=== PATIENT | female | born 1995 | race Caucasian/White ===

== ENCOUNTER → 2016-10-20 | Outpatient (CLI) | payer BC ==
[~2016-10-20] MED LIST: Iopamidol 755 MG/ML 500 ML Multipack Bottle IVPUSH STA
--- NOTE | 2016-10-20 17:39 | CT ---
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 Site : 1995 Study: CT Abdomen/Pelvis [id number]/26/2017 3:34:26 PM Ordering Physician: Kinsey Joe Final Report: INDICATION: periumbilical pain CT ABDOMEN AND PELVIS WITH CONTRAST TECHNIQUE: Multidetector CT imaging was performed through the abdomen and pelvis following intravenous contrast administration using 100 mL Isovue 370. Oral contrast was also given. Coronal and sagittal reconstructions were generated. COMPARISON: None. FINDINGS: Lower chest: Lung bases are clear. Liver: Within normal limits. Gallbladder and bile ducts: No gallbladder wall thickening or calcified gallstones. No biliary dilation identified. Pancreas: Unremarkable. Spleen: Normal. Adrenals: No nodules or masses. Kidneys, ureters, and urinary bladder: A few small nonobstructing bilateral intrarenal stones, greatest on the left. No renal masses or hydronephrosis. No bladder mass or definite wall thickening. Gastrointestinal tract: Normal caliber bowel without wall thickening. The appendix is normal. Vascular structures: Normal for age. Peritoneum: No free air, abscess, or significant free fluid. Lymph nodes: Lymph nodes throughout the mesentery are slightly prominent. No pathologically enlarged nodes are identified. Reproductive organs: No pelvic masses. Bones: Normal for age. IMPRESSION: 1. Slightly prominent mesenteric lymph nodes. The possibility of mesenteric adenitis could be considered. No other acute findings are noted in the abdomen or pelvis. 2. Small nonobstructing bilateral intrarenal stones, greatest on the left. ANABELLE OROZCO MD [employer] Dictated by Papa Orozco MD @ 10/20/2016 3:49:34 PM Dictated by: Papa Orozco MD @ 10/20/2016 15:56:53 (Electronic Signature) Report Signed by Proxy and Original Signed Document filed in the Medical Record. [facility]
== END ==
LOC: MW.DI 14:59
PROVIDERS: ATTEND Surgery
DX: R10.33 Periumbilical pain (principal); N20.0 Calculus of kidney
CPT/HCPCS: 74177; Q9967

== ENCOUNTER 2016-11-03 08:09 | Day surgery (SDC) | payer BC ==
[~2016-11-03 08:09] MED LIST changes: -Iopamidol 755 MG/ML 500 ML Multipack Bottle IVPUSH STA; +Lactated Ringers 1,000 ML IV SCH; +Lidocaine 2% 5 ML SDV ONE; +Midazolam 1 MG/ML 2 ML SDV ONE; +Propofol 200 MG/20 ML SDV ONE; +Sodium Chloride 0.9% 10 ML Syringe FLUSH PRN; +Sodium Chloride 0.9% 2.5 ML Syringe FLUSH PRN; +fentaNYL 100 MCG/2 ML SDV ONE
--- NOTE | 2016-11-03 08:44 | PCM.PREANE ---
Preanesthetic Assessment - Anesthesia/Transfusion/Family Hx Anesthesia History: Prior Anesthesia Without Reaction Family History of Anesthesia Reaction: No Transfusion History: No Prior Transfusion(s) Intubation History: Unknown - Review of Systems General: No Symptoms Pulmonary: No Symptoms Cardiovascular: No Symptoms Gastrointestinal: Constipation Neurological: No Symptoms Other: Reports: None - Physical Assessment O2 Sat by Pulse Oximetry: 98 Respiratory Rate: 16 Vital Signs: Last Vital Signs Temp 36.6 C 11/03/16 08:37 Pulse 71 11/03/16 08:37 Resp 16 11/03/16 08:37 BP 104/59 L 11/03/16 08:37 Pulse Ox 98 11/03/16 08:37 Height: 1.6 m Weight: 86 kg ASA Class: 2 Mental Status: Alert & Oriented x3 Airway Class: Mallampati = 2 Dentition: Reports: Normal Dentition Thyro-Mental Finger Breadths: 3 Mouth Opening Finger Breadths: 3 ROM/Head Extension: Full Lungs: Clear to auscultation, Normal respiratory effort Cardiovascular: Regular Rate, Regular Rhythm - Allergies Allergies/Adverse Reactions: Allergies Allergy/AdvReac Type Severity Reaction Status Date / Time No Known Allergies Allergy Verified 05/07/16 22:06 - Blood Blood Available: No - Anesthesia Plan Pre-Op Medication Ordered: None - Acknowledgements Anesthesia Type Planned: MAC Pt an Appropriate Candidate for the Planned Anesthesia: Yes Alternatives and Risks of Anesthesia Discussed w Pt/Guardian: Yes Pt/Guardian Understands and Agrees with Anesthesia Plan: Yes PreAnesthesia Questionnaire Cardiovascular History: Reports: None Respiratory History: Reports: None Gastrointestinal History: Reports: None, Chronic constipation Genitourinary History: Reports: None Other Genitourinary History: currently has kidney stone [employer] History: Reports: None Musculoskeletal History: Reports: None Neurological History: Reports: Migraines Psychiatric History: Reports: None Endocrine/Metabolic History: Reports: Obesity/BMI 30+ Oncologic (Cancer) History: Reports: None Dermatologic History: Reports: None - Infectious Disease History Infectious Disease History: Reports: None - Past Surgical History HEENT Surgical History: Reports: Adenoidectomy, Tonsillectomy - SUBSTANCE USE Smoking Status *Q: Never Smoker Recreational Drug Use History: No - HOME MEDS Home Medications: Home Meds Etonogestrel [Nexplanon] 1 device SUBCUT ASDIRECTED 11/01/16 [History] Topiramate 50 mg PO ASDIRECTED 11/01/16 [History] - CURRENT (IN HOUSE) MEDS Current Meds: Current Medications Lactated Ringer's (Ringers, Lactated) 1,000 mls @ 125 mls/hr IV ASDIRECTED [facility] Last Admin: 11/03/16 08:36 Dose: 125 mls/hr Sodium Chloride (Saline Flush) 10 ml FLUSH ASDIRECTED PRN PRN Reason: Keep Vein Open Sodium Chloride (Saline Flush) 2.5 ml FLUSH ASDIRECTED PRN PRN Reason: Keep Vein Open Discontinued Medications Fentanyl (Sublimaze) Confirm Administered Dose 100 mcg .ROUTE .STK-MED ONE Stop: 11/03/16 07:18 Lidocaine (Xylocaine-Mpf 2%) Confirm Administered Dose 5 ml .ROUTE .STK-MED ONE Stop: 11/03/16 07:18 Midazolam HCl (Versed 1 Mg/Ml) Confirm Administered Dose 2 mg .ROUTE .STK-MED ONE Stop: 11/03/16 07:18 Propofol (Diprivan 20 Ml) Confirm Administered Dose 400 mg .ROUTE .STK-MED ONE Stop: 11/03/16 07:18
[2016-11-03] MEDS ORDERED: Glycopyrrolate 0.2 MG/ML SDV ONE (09:17)
[2016-11-03] MEDS ORDERED: ePHEDrine 50 MG/ML SDV ONE (09:18)
[2016-11-03] MEDS ORDERED: Propofol 200 MG/20 ML SDV ONE ×4 (09:27→10:33)
--- NOTE | 2016-11-03 09:48 | PCM.OPNOTE ---
- General Post-Op/Procedure Note Date of Surgery/Procedure: 11/03/16 Operative Procedure(s): Diagnostic EGD and colonoscopy Findings: Gastritis and superficial antral ulcers. Duodenitis. Normal colon Pre Op Diagnosis: Abdominal pain, constipation Post-Op Diagnosis: Gastritis, duodenitis, ulcers Primary Surgeon: Tatyana Euceda Condition: Good
--- NOTE | 2016-11-03 09:58 | PCM.POSTAN ---
POST ANESTHESIA ASSESSMENT - MENTAL STATUS Mental Status: alert, oriented - RESPIRATORY Respiratory Status: respiratory rate WNL, airway patent, O2 saturation stable - CARDIOVASCULAR CV Status: pulse rate WNL, blood pressure stable - GASTROINTESTINAL GI Status: no symptoms - POST OP HYDRATION Hydration Status: adequate & stable - OBSERVATIONS Free Text/Narrative:: no anesthesia problems
[2016-11-03] MEDS ORDERED: fentaNYL 100 MCG/2 ML SDV ONE (10:21)
[2016-11-03] MEDS ORDERED: Succinylcholine/Normal Saline 200 MG/10 ML Syringe ONE (10:28)
[2016-11-03] MEDS ORDERED: Phenylephrine/Normal Saline 100 MCG/ML 10 ML Syringe ONE (10:29)
[2016-11-03 12:53] VITALS: BP 97/54
--- NOTE | 2016-11-03 14:20 | OR ---
SURGEON: CRISTELA STEPHEN MD DATE OF PROCEDURE: 11/03/2016 PREOPERATIVE DIAGNOSES: Change in bowel habits, abdominal pain. POSTOPERATIVE DIAGNOSES: Gastritis and duodenitis, gastric ulcers. PROCEDURE PERFORMED: Diagnostic esophagogastroduodenoscopy and colonoscopy. INSTRUMENT USED: Olympus endoscope and colonoscope. ANESTHESIA: MAC. EXTENT OF EXAM: 1. To the second portion of duodenum during the EGD portion. 2. To the cecum during the colonoscopic portion. PREPARATION: Good. LIMITATIONS: None. INDICATIONS FOR EXAMINATION: The patient is a 21-year-old female, who presents with 2 complaints. One of them is abdominal pain. She has been experiencing this across her mid abdomen. She feels this is secondary to long-standing constipation. The patient has never had a regular bowel movement. She has always been very constipated and [id number] treatments have not been helpful. The patient denies any family history of inflammatory bowel disease or colon cancer. A CT of the abdomen was obtained that showed no evidence of any acute pathology. We discussed performing a diagnostic EGD and colonoscopy to look for a source of her discomfort and possible cause of the constipation. We discussed the procedure as well as expected perioperative course. We discussed the risks, including bleeding, infection, or damage to surrounding structures, including perforation. The patient verbalized understanding and wished to proceed. PROCEDURE IN DETAIL: The patient was brought to the endoscopy suite and placed in the beach chair position. A time-out was completed verifying the patient's name, age, date of , allergies, and procedure to be performed. Monitored anesthesia care was induced and a bite-block was placed in the patient's mouth. The continuous oxygen was provided via nasal cannula throughout the procedure. After adequate sedation was achieved, the endoscope was placed over the patient's tongue, down her esophagus, and advanced under direct visualization to the level of the second portion of duodenum. A photograph was taken of the second portion of duodenum which appeared normal. The scope was then pulled back to carefully examine the remainder of the intestine. The duodenal bulb appeared mildly erythematous consistent with duodenitis. The scope was then brought into the stomach. There were superficial ulcers within the gastric antrum. A photograph was taken of this. The pylorus appeared normal. Biopsies were taken of the stomach, antrum, body, and fundus, and sent for H. pylori testing. The scope was then brought into the esophagus and a picture was taken of the Z-line which appeared normal. The remainder of the esophageal mucosa appeared normal. The scope was then removed from the patient. The patient was then placed on her left side, in the left lateral decubitus position. A digital rectal exam was performed which was within normal limits. The patient did have some irritation around the anus secondary to the prep, but this appeared superficial. A well lubricated colonoscope was inserted into the rectum, advanced under direct visualization to the level of cecum. The cecum was identified by both visual and anatomic landmarks. Photographs were taken of the cecal cap as well as with retroflexing the scope. The scope was then fully withdrawn while examining the color, texture, anatomy, and integrity of the mucosa from the cecum to the anal canal. The findings were consistent with normal colonic mucosa. The scope was brought into the rectum and retroflexed to allow visualization of the anal canal opening. This appeared normal and photograph was taken. The scope was then straightened out and removed from the patient. The cecum to anus time was 9 minutes. The patient was then transferred to the recovery room in stable condition. ENDOSCOPIC DIAGNOSES: Gastritis and duodenitis, superficial gastric ulcers. RECOMMENDATIONS: Start on aggressive PPI therapy with Carafate. We will see the patient in 2 weeks in the clinic. WHITNEY REEVES /[id number]
== END 2016-11-03 10:35 | disposition home or self-care (01) ==
LOC: MW.SDS 08:09
PROVIDERS: ATTEND Surgery
DX: K29.50 Unspecified chronic gastritis without bleeding (principal); K25.9 Gastric ulcer, unspecified as acute or chronic, without hemorrhage or perforation; K29.80 Duodenitis without bleeding; G40.909 Epilepsy, unspecified, not intractable, without status epilepticus; F17.200 Nicotine dependence, unspecified, uncomplicated; Z98.818 Other dental procedure status; Z98.890 Other specified postprocedural states
CPT/HCPCS: 43239; 45378; 81025; J2250; J3010; J7120; 00740; 88305; 88312; J2704

== ENCOUNTER 2016-12-19 15:55 | Emergency (ER) | payer BC ==
[2016-12-19 16:05] VITALS: BP 127/72
--- NOTE | 2016-12-19 16:53 | EDM.PDOC ---
ED HPI GENERAL MEDICAL PROBLEM - General Chief Complaint: Genitourinary Problem Stated Complaint: ABDOMINAL PAIN/BLOOD IN URINE Time Seen by Provider: 12/19/16 16:10 Source of Information: Reports: Patient History Limitations: Reports: No Limitations - History of Present Illness INITIAL COMMENTS - FREE TEXT/NARRATIVE: HISTORY AND PHYSICAL: History of present illness: [Comes to the emergency room complaining of blood in her urine. Noticed this morning when she woke up and has continued throughout the day. She has been under the care of Dr. Amado the urologist for kidney stones. She states that stones are far up in her kidneys and she was told she wouldn't pass these for maybe one year. She has had no new low back pain, burning with urination urinary frequency or urinary urgency. No fever chills or abdominal pain. No vaginal discharge. She has otherwise been feeling well. She does not get regular periods due to her control. She has no other complaints or concerns at this time. Review of systems: As per history of present illness and below otherwise all systems reviewed and negative. Past medical history: As per history of present illness and as reviewed below otherwise noncontributory. Surgical history: As per history of present illness and as reviewed below otherwise noncontributory. Social history: No reported history of drug or alcohol abuse. Family history: As per history of present illness and as reviewed below otherwise noncontributory. Physical exam: Gen.: Well-developed well-nourished female in no acute distress HEENT: Atraumatic, normocephalic. Oral mucous membranes are pink and moist. No tonsillar swelling erythema or exudate. Lungs: Clear to auscultation, breath sounds equal bilaterally. Heart: S1S2, regular rate and rhythm. Abdomen: Soft, nondistended, nontender. Negative for masses or rebound. Negative for costovertebral tenderness. Genitourinary: Deferred. Rectal: Deferred. Extremities: Atraumatic, no deformities noted. Ambulance difficulty. Neurovascular unremarkable. Neuro: Awake, alert, oriented. Motor and sensory unremarkable throughout. Exam nonfocal. Diagnostics: [Urinalysis with micro, urine ] Impression: [UTI] Plan: [Urine is positive for large amount of blood and for nitrates, white blood cells , bacteria. Anjumra DS #10 sig 1 by mouth twice a day 0 refills sent to [facility]. She is also given a written prescription for #4 to take 1 twice a day to fill at her local pharmacy. Push fluids. Follow-up with PCP. She is in agreement with this plan. All her questions are answered and concerns are addressed.] Definitive disposition and diagnosis as appropriate pending reevaluation and review of above. lower back Pain Score (Numeric/FACES): 3 - Related Data Allergies Allergy/AdvReac Type Severity Reaction Status Date / Time No Known Allergies Allergy Verified 12/19/16 16:00 Home Meds: Home Meds Etonogestrel [Nexplanon] 1 device SUBCUT ASDIRECTED 11/01/16 [History] Topiramate 50 mg PO ASDIRECTED 11/01/16 [History] Docusate Sodium 100 mg PO BID PRN #30 capsule 11/03/16 [Rx] Pantoprazole [ProTONIX] 40 mg PO ACBREAKFAST #30 tab.cr 11/03/16 [Rx] Polyethylene Glycol 3350 [MiraLAX] 17 gm PO DAILY #30 packet 11/03/16 [Rx] Sucralfate [Carafate] 1 gm PO QIDACANDBED #28 cup 11/03/16 [Rx] Propranolol [Inderal] 10 mg PO BID 12/19/16 [History] Past Medical History HEENT History: Reports: None Cardiovascular History: Reports: None Respiratory History: Reports: None Gastrointestinal History: Reports: None, Chronic Constipation Genitourinary History: Reports: None Other Genitourinary History: currently has kidney stone [employer] History: Reports: None Musculoskeletal History: Reports: None Neurological History: Reports: None Psychiatric History: Reports: None Endocrine/Metabolic History: Reports: None Hematologic History: Reports: None Immunologic History: Reports: None Oncologic (Cancer) History: Reports: None Dermatologic History: Reports: None - Infectious Disease History Infectious Disease History: Reports: None - Past Surgical History Head Surgeries/Procedures: Reports: None HEENT Surgical History: Reports: Adenoidectomy, Tonsillectomy Cardiovascular Surgical History: Reports: None Female Surgical History: Reports: None Social & Family History - Family History Family Medical History: Noncontributory - Tobacco Use Smoking Status *Q: Never Smoker - Caffeine Use Caffeine Use: Reports: Coffee - Recreational Drug Use Recreational Drug Use: No ED ROS GENERAL - Review of Systems Review Of Systems: ROS reveals no pertinent complaints other than HPI. ED EXAM, RENAL/ - Physical Exam Exam: See Below Course - Vital Signs Last Recorded V/S: Last Vital Signs Temp 97.9 F 12/19/16 16:02 Pulse 74 12/19/16 16:02 Resp 16 12/19/16 16:02 BP 127/72 12/19/16 16:02 Pulse Ox 98 12/19/16 16:02 - Orders/Labs/Meds Labs: Laboratory Tests 12/19/16 12/19/16 Range/Units 16:05 16:05 Urine Color BROWN Urine Appearance SLT CLOUDY Urine pH 5.5 (5.0-8.0) Ur Specific Krypton >= 1.030 (1.001-1.035) Urine Protein 30 (NEGATIVE) mg/dL Urine Glucose (UA) NEGATIVE (NEGATIVE) mg/dL Urine Ketones TRACE H (NEGATIVE) mg/dL Urine Occult Blood LARGE H (NEGATIVE) Urine Nitrite POSITIVE H (NEGATIVE) Urine Bilirubin SMALL H (NEGATIVE) Urine Ictotest NEGATIVE Urine Urobilinogen 1.0 (<2.0) EU/dL Ur Leukocyte Esterase TRACE (NEGATIVE) Urine RBC TOO NUMBEROUS TO CT H (0-2/HPF) Urine WBC 2-5 (0-5/HPF) Ur Epithelial Cells FEW (NONE-FEW) Urine Bacteria 1+ H (NEGATIVE) Urine HCG, Qual NEGATIVE (NEGATIVE) Departure - Departure Time of Disposition: 16:53 Disposition: Home, Self-Care 01 Condition: Good Clinical Impression: UTI, Urinary tract infectious disease - Discharge Information Instructions: Urinary Tract Infection, Adult, [id number] Referrals: Marissa Godwin NP [Primary Care Provider] - Forms: ED Department Discharge Additional Instructions: The following information is given to patients seen in the emergency department who are being discharged to home. This information is to outline your options for follow-up care. We provide all patients seen in our emergency department with a follow-up referral. The need for follow-up, as well as the timing and circumstances, are variable depending upon the specifics of your emergency department visit. If you don't have a primary care physician on staff, we will provide you with a referral. We always advise you to contact your personal physician following an emergency department visit to inform them of the circumstance of the visit and for follow-up with them and/or the need for any referrals to a consulting specialist. The emergency department will also refer you to a specialist when appropriate. This referral assures that you have the opportunity for follow-up care with a specialist. All of these measure are taken in an effort to provide you with optimal care, which includes your follow-up. Under all circumstances we always encourage you to contact your private physician who remains a resource for coordinating your care. When calling for follow-up care, please make the office aware that this follow-up is from your recent emergency room visit. If for any reason you are refused follow-up, please contact the [facility] emergency department at and asked to speak to the emergency department charge nurse. [facility] [address] [place] [id number] All up with your primary care provider at the clinic listed above in 48-72 hours. Complete the antibiotics that you got through [facility], then fill prescription at the local pharmacy and continue until all taken. Return to ER as needed as discussed.
== END 2016-12-19 17:07 | disposition home or self-care (01) ==
LOC: MW.ED 15:55
DX: N39.0 Urinary tract infection, site not specified (principal); Z79.899 Other long term (current) drug therapy; Z98.890 Other specified postprocedural states
CPT/HCPCS: 81001; 81025; 87086; 99283

== ENCOUNTER 2017-03-19 18:12 | Emergency (ER) | payer BC ==
--- NOTE | 2017-03-19 18:18 | EDM.PDOC ---
ED HPI GENERAL MEDICAL PROBLEM - General Chief Complaint: Chest Pain Stated Complaint: SOB Time Seen by Provider: 03/19/17 18:17 Source of Information: Reports: Patient History Limitations: Reports: No Limitations - History of Present Illness INITIAL COMMENTS - FREE TEXT/NARRATIVE: HISTORY AND PHYSICAL: History of present illness: Patient is a 21-year-old female who presents to the emergency room today with complaints of chest pain 3 days. Patient points across the upper chest wall both left and right stating it's been aching. Denies any cough, fever, chills or shortness of breath. Denies any headache or change in vision. Denies any recent injury or trauma to her chest. Patient denies any abdominal pain, flank pain, or dysuria. Denies any personal history of cardiac or lung disease. Immediate family members have heart disease. Review of systems: As per history of present illness and below otherwise all systems reviewed and negative. Past medical history: As per history of present illness and as reviewed below otherwise noncontributory. Surgical history: As per history of present illness and as reviewed below otherwise noncontributory. Social history: No reported history of drug or alcohol abuse. Family history: As per history of present illness and as reviewed below otherwise noncontributory. Physical exam: Gen.: Nontoxic appearing 21-year-old female. Able to speak in full sentences without shortness of breath. Alert and oriented HEENT: Atraumatic, normocephalic, pupils reactive, negative for conjunctival pallor or scleral icterus, mucous membranes moist, throat clear, neck supple, nontender, trachea midline. Lungs: Clear to auscultation, breath sounds equal bilaterally, chest nontender. Heart: S1S2, regular rate and rhythm. Abdomen: Soft, nondistended, nontender. Negative for masses or hepatosplenomegaly. Negative for costovertebral tenderness. Pelvis: Stable nontender. Genitourinary: Deferred. Rectal: Deferred. Extremities: Atraumatic, negative for cords or calf pain. Neurovascular unremarkable. Neuro: Awake, alert, oriented. Cranial nerves II through XII unremarkable. Cerebellum unremarkable. Motor and sensory unremarkable throughout. Exam nonfocal. After obtaining my H&P went into the room to assess patient. Patient had an emesis bag with small amount of foody emesis. Patient complaining of increased nausea at this time. The patient some IV fluids and Toradol/Zofran. Reviewed the CT which reported patient stating she had some blood in her urine. Patient said the she has no dysuria suprapubic tenderness or flank tenderness. After patient received her IV medication and fluids, reports that she does feel improvement. Viewed her lab work and x-ray with the patient. Should symptoms appear to be viral at this time. I will give her a Medrol Dosepak for bronchitis type symptoms. Encouraged her to drink plenty of fluids over the next couple days and get plenty of rest. Diagnostics: CBC, CMP, troponin, 2 view chest x-ray, EKG Therapeutics: IV fluid, Zofran, Toradol Impression: Viral illness, bronchitis Plan: 1. You may take the prescribed Zofran as needed for nausea. Continue to drink plenty of fluids and get plenty of rest over the next couple days. 2. Medrol dose pack has been prescribed, please take as directed. 3. Follow-up with your primary care provider in the next 1-2 days. Her symptoms worsen or any of the symptoms that we discussed present themselves, please return to the ED as discussed. Wound to the ED as needed as discussed. Definitive disposition and diagnosis as appropriate pending reevaluation and review of above. Onset Date: 03/16/17 Duration: Day(s): Location: Reports: Chest chest pain Pain Score (Numeric/FACES): 8 - Related Data Allergies Allergy/AdvReac Type Severity Reaction Status Date / Time No Known Allergies Allergy Verified 03/19/17 18:16 Home Meds: Home Meds Etonogestrel [Nexplanon] 1 device SUBCUT ASDIRECTED 11/01/16 [History] Topiramate 50 mg PO ASDIRECTED 11/01/16 [History] Docusate Sodium 100 mg PO BID PRN #30 capsule 11/03/16 [Rx] Pantoprazole [ProTONIX] 40 mg PO ACBREAKFAST #30 tab.cr 11/03/16 [Rx] Polyethylene Glycol 3350 [MiraLAX] 17 gm PO DAILY #30 packet 11/03/16 [Rx] Sucralfate [Carafate] 1 gm PO QIDACANDBED #28 cup 11/03/16 [Rx] Propranolol [Inderal] 10 mg PO BID 12/19/16 [History] Past Medical History HEENT History: Reports: None Cardiovascular History: Reports: None Respiratory History: Reports: None Gastrointestinal History: Reports: None, Chronic Constipation Genitourinary History: Reports: None Other Genitourinary History: currently has kidney stone DREDGE HAND History: Reports: None Musculoskeletal History: Reports: None Neurological History: Reports: None Psychiatric History: Reports: None Endocrine/Metabolic History: Reports: None Hematologic History: Reports: None Immunologic History: Reports: None Oncologic (Cancer) History: Reports: None Dermatologic History: Reports: None - Infectious Disease History Infectious Disease History: Reports: None - Past Surgical History Head Surgeries/Procedures: Reports: None HEENT Surgical History: Reports: Adenoidectomy, Tonsillectomy Cardiovascular Surgical History: Reports: None Female Surgical History: Reports: None Social & Family History - Family History Family Medical History: Noncontributory - Tobacco Use Smoking Status *Q: Never Smoker - Caffeine Use Caffeine Use: Reports: Coffee - Recreational Drug Use Recreational Drug Use: No ED ROS GENERAL - Review of Systems Review Of Systems: ROS reveals no pertinent complaints other than HPI. ED EXAM, GENERAL - Physical Exam Exam: See Below (See dictation) Course - Vital Signs Last Recorded V/S: Last Vital Signs Temp 36.3 C 03/19/17 18:19 Pulse 89 03/19/17 18:19 Resp 18 03/19/17 18:19 BP 121/74 03/19/17 18:19 Pulse Ox 98 03/19/17 18:19 - Orders/Labs/Meds Orders: Active Orders 24 hr Category Date Time Status EKG 12 Lead [EKG Documentation Completion] [RC] STAT Care 03/19/17 18:28 Active Chest 2V [CR] Stat Exams 03/19/17 18:28 Taken Sodium Chloride 0.9% [Normal Saline] 1,000 ml Med 03/19/17 18:59 Active IV STAT Medication Orders Sodium Chloride (Normal Saline) 1,000 mls @ 999 mls/hr IV STAT ONE Stop: 03/19/17 19:59 Last Admin: 03/19/17 19:30 Dose: 999 mls/hr Labs: Laboratory Tests 03/19/17 03/19/17 03/19/17 Range/Units 18:34 18:34 18:34 WBC 9.47 (4.0-11.0) K/uL RBC 4.99 (4.30-5.90) M/uL Hgb 14.4 (12.0-16.0) g/dL Hct 41.9 (36.0-46.0) % MCV 84.0 (80.0-98.0) fL MCH 28.9 (27.0-32.0) pg MCHC 34.4 (31.0-37.0) g/dL RDW Std Deviation 40.5 (28.0-62.0) fl RDW Coeff of Johnathan 13 (11.0-15.0) % Plt Count 344 (150-400) K/uL MPV 9.50 (7.40-12.00) fL Neut % (Auto) 62.2 (48.0-80.0) % Lymph % (Auto) 25.8 (16.0-40.0) % Traverse % (Auto) 9.2 (0.0-15.0) % Eos % (Auto) 2.4 (0.0-7.0) % Baso % (Auto) 0.4 (0.0-1.5) % Neut # (Auto) 5.9 H (1.4-5.7) K/uL Lymph # (Auto) 2.4 (0.6-2.4) K/uL Traverse # (Auto) 0.9 H (0.0-0.8) K/uL Eos # (Auto) 0.2 (0.0-0.7) K/uL Baso # (Auto) 0.0 (0.0-0.1) K/uL Nucleated RBC % 0.0 /100WBC Nucleated RBCs # 0 K/uL Sodium 143 (136-146) mmol/L Potassium 3.6 (3.5-5.1) mmol/L Chloride 109 (98-110) mmol/L Carbon Dioxide 24 (21-31) mmol/L BUN 12 (6.0-23.0) mg/dL Creatinine 0.8 (0.6-1.5) mg/dL Est Cr Clr Drug Dosing 100.10 mL/min Estimated GFR (MDRD) > 60.0 ml/min Glucose 108 (60-110) mg/dL Calcium 9.7 (8.8-10.8) mg/dL Total Bilirubin 0.4 (0.1-1.5) mg/dL AST 16 (5-40) IU/L ALT 14 (8-54) IU/L Alkaline Phosphatase 115 (40-150) Troponin I < 0.10 (0.0-0.29) NG/ML Total Protein 7.9 (6.0-8.0) g/dL Albumin 4.3 (3.5-5.0) g/dL Globulin 3.6 H (2.0-3.5) g/dL Albumin/Globulin Ratio 1.2 L (1.3-2.8) HCG, Qual (NEG) 03/19/17 Range/Units 18:34 WBC (4.0-11.0) K/uL RBC (4.30-5.90) M/uL Hgb (12.0-16.0) g/dL Hct (36.0-46.0) % MCV (80.0-98.0) fL MCH (27.0-32.0) pg MCHC (31.0-37.0) g/dL RDW Std Deviation (28.0-62.0) fl RDW Coeff of Johnathan (11.0-15.0) % Plt Count (150-400) K/uL MPV (7.40-12.00) fL Neut % (Auto) (48.0-80.0) % Lymph % (Auto) (16.0-40.0) % Traverse % (Auto) (0.0-15.0) % Eos % (Auto) (0.0-7.0) % Baso % (Auto) (0.0-1.5) % Neut # (Auto) (1.4-5.7) K/uL Lymph # (Auto) (0.6-2.4) K/uL Traverse # (Auto) (0.0-0.8) K/uL Eos # (Auto) (0.0-0.7) K/uL Baso # (Auto) (0.0-0.1) K/uL Nucleated RBC % /100WBC Nucleated RBCs # K/uL Sodium (136-146) mmol/L Potassium (3.5-5.1) mmol/L Chloride (98-110) mmol/L Carbon Dioxide (21-31) mmol/L BUN (6.0-23.0) mg/dL Creatinine (0.6-1.5) mg/dL Est Cr Clr Drug Dosing mL/min Estimated GFR (MDRD) ml/min Glucose (60-110) mg/dL Calcium (8.8-10.8) mg/dL Total Bilirubin (0.1-1.5) mg/dL AST (5-40) IU/L ALT (8-54) IU/L Alkaline Phosphatase (40-150) Troponin I (0.0-0.29) NG/ML Total Protein (6.0-8.0) g/dL Albumin (3.5-5.0) g/dL Globulin (2.0-3.5) g/dL Albumin/Globulin Ratio (1.3-2.8) HCG, Qual NEGATIVE (NEG) Meds: Medications Generic Name Dose Route Start Last Admin Trade Name Freq PRN Reason Stop Dose Admin Sodium Chloride 1,000 mls @ 999 mls/hr 03/19/17 18:59 03/19/17 19:30 Normal Saline IV 03/19/17 19:59 999 mls/hr STAT ONE Administration Discontinued Medications Generic Name Dose Route Start Last Admin Trade Name Freq PRN Reason Stop Dose Admin Ketorolac Tromethamine 30 mg 03/19/17 18:59 03/19/17 19:31 Toradol IVPUSH 03/19/17 19:00 30 mg ONETIME ONE Administration Ondansetron HCl 4 mg 03/19/17 18:59 03/19/17 19:31 Zofran IVPUSH 03/19/17 19:00 4 mg ONETIME ONE Administration Departure - Departure Time of Disposition: 20:03 Disposition: Home, Self-Care 01 Condition: Good Clinical Impression: Viral illness, Bronchitis Referrals: PCP,Unknown [Primary Care Provider] - Forms: ED Department Discharge Additional Instructions: My general discharge The following information is given to patients seen in the emergency department who are being discharged to home. This information is to outline your options for follow-up care. We provide all patients seen in our emergency department with a follow-up referral. The need for follow-up, as well as the timing and circumstances, are variable depending upon the specifics of your emergency department visit. If you don't have a primary care physician on staff, we will provide you with a referral. We always advise you to contact your personal physician following an emergency department visit to inform them of the circumstance of the visit and for follow-up with them and/or the need for any referrals to a consulting specialist. The emergency department will also refer you to a specialist when appropriate. This referral assures that you have the opportunity for follow-up care with a specialist. All of these measure are taken in an effort to provide you with optimal care, which includes your follow-up. Under all circumstances we always encourage you to contact your private physician who remains a resource for coordinating your care. When calling for follow-up care, please make the office aware that this follow-up is from your recent emergency room visit. If for any reason you are refused follow-up, please contact the [facility] Emergency Department at and asked to speak to the emergency department charge nurse. [facility] [address] [place] [id number] 1. You may take the prescribed Zofran as needed for nausea. Continue to drink plenty of fluids and get plenty of rest over the next couple days. Please take Tylenol and/or ibuprofen [id number] as directed for pain and fever control. 2. Medrol dose pack has been prescribed, please take as directed. 3. Follow-up with your primary care provider in the next 1-2 days. Her symptoms worsen or any of the symptoms that we discussed present themselves, please return to the ED as discussed. Wound to the ED as needed as discussed. - My Orders Last 24 Hours: My Active Orders 03/19/17 18:28 EKG 12 Lead [EKG Documentation Completion] [RC] STAT Chest 2V [CR] Stat 03/19/17 18:59 Sodium Chloride 0.9% [Normal Saline] 1,000 ml IV STAT - Assessment/Plan Last 24 Hours: My Active Orders 03/19/17 18:28 EKG 12 Lead [EKG Documentation Completion] [RC] STAT Chest 2V [CR] Stat 03/19/17 18:59 Sodium Chloride 0.9% [Normal Saline] 1,000 ml IV STAT
[2017-03-19] MEDS ORDERED: Sodium Chloride 0.9% 1,000 ML IV ONE (18:59)
[2017-03-19] MEDS ORDERED: Ketorolac 30 MG/ML SDV IVPUSH ONE (18:59)
[2017-03-19] MEDS ORDERED: Ondansetron 4 MG/2 ML SDV IVPUSH ONE (18:59)
[2017-03-19 19:03] LABS: CHLORIDE,CL 109 mmol/L (98-110); SODIUM,NA 143 mmol/L (136-146)
[2017-03-19 20:11] VITALS: BP 117/67
--- NOTE | 2017-03-21 17:49 | CR ---
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 Site : 1995 Study: XRay Chest [id number]/23/2017 7:16:04 PM Ordering Physician: Doctor Guillen Final Report: INDICATION: Chest pain TECHNIQUE: Chest 2 views. COMPARISON: None available FINDINGS: Cardiovascular and mediastinum: Heart size and vasculature are normal in caliber and appearance. Mediastinum is within normal limits. Lungs and pleural spaces: Lungs are clear. No sign of infiltrate or mass. No sign of pleural effusion. No pneumothorax. Bones and soft tissues: No significant findings. IMPRESSION: No sign of acute disease. Dictated by Darron Dougherty MD @ 03/19/2017 7:38:07 PM Dictated by: Darron Dougherty MD @ 03/19/2017 19:38:10 (Electronic Signature) Report Signed by Proxy. [email or web address]
== END 2017-03-19 20:41 | disposition home or self-care (01) ==
LOC: MW.ED 18:12
DX: J40 Bronchitis, not specified as acute or chronic (principal); B34.9 Viral infection, unspecified; Z79.899 Other long term (current) drug therapy
CPT/HCPCS: 36415; 71020; 80053; 81001; 84484; 84703; 85025; 87086; 93005; 96361; 96374; 96375; 99285; J1885; J2405; J7040; 99283

== ENCOUNTER 2017-06-10 09:53 | Emergency (ER) | payer BC ==
[2017-06-10 10:19] VITALS: BP 129/60
[2017-06-10] MEDS ORDERED: diphenhydrAMINE 50 MG/ML SDV IVPUSH ONE (10:20)
[2017-06-10] MEDS ORDERED: Sodium Chloride 0.9% 1,000 ML IV ONE (10:20)
[2017-06-10] MEDS ORDERED: Ketorolac 30 MG/ML SDV IVPUSH ONE (10:20)
[2017-06-10] MEDS ORDERED: Ondansetron 4 MG/2 ML SDV IVPUSH ONE (10:20)
[2017-06-10] MEDS ORDERED: methylPREDNISolone Sodium Succinate 125 MG/2 ML SDV IVPUSH ONE (10:22)
--- NOTE | 2017-06-10 10:27 | EDM.PDOC ---
ED HPI GENERAL MEDICAL PROBLEM - General Chief Complaint: Headache Stated Complaint: MIGRAINE Time Seen by Provider: 06/10/17 10:08 Source of Information: Reports: Patient History Limitations: Reports: No Limitations - History of Present Illness INITIAL COMMENTS - FREE TEXT/NARRATIVE: HISTORY AND PHYSICAL: History of present illness: Patient is a 21-year-old female who presents to the emergency room today with complaints of a headache. She has had a migraine headache for the past [address] Allison, at [facility], approximately 1-1/2 weeks ago and was placed on Levaquin for 1 week to treat sinusitis. She states that the headache is getting worse and has not improved. Also has nausea, vomiting, light and noise sensitivity. The pain is primarily in bilateral temples and goes across her forehead. She has tried her topiramate, several migraine [id number] medications, resting, sleeping and increasing her fluids- without any relief. She does take propranolol daily as a preventative measure her migraines have been long-standing. She has a nexplanon implant, is not had a menstrual period in "forever", denies chance of . Significant other is at the bedside. Review of systems: As per history of present illness and below otherwise all systems reviewed and negative. Past medical history: As per history of present illness and as reviewed below otherwise noncontributory. Surgical history: As per history of present illness and as reviewed below otherwise noncontributory. Social history: No reported history of drug or alcohol abuse. Family history: As per history of present illness and as reviewed below otherwise noncontributory. Physical exam: Gen.: Developed and well-nourished 21-year-old female. Appears nontoxic and in no acute distress. Alert and oriented. HEENT: Atraumatic, normocephalic, pupils reactive, negative for conjunctival pallor or scleral icterus, mucous membranes moist, throat clear, neck supple, nontender, trachea midline. Non tender with palpation to the temporal area bilaterally. Lungs: Clear to auscultation, breath sounds equal bilaterally, chest nontender. Heart: S1S2, regular rate and rhythm without overt murmurs. Abdomen: Soft, nondistended, nontender. Negative for masses or hepatosplenomegaly. Negative for costovertebral tenderness. Pelvis: Stable nontender. Genitourinary: Deferred. Rectal: Deferred. Extremities: Atraumatic, moves all extremities per self, full range of motion, negative for cords or calf pain. Neurovascular unremarkable. Neuro: Awake, alert, oriented. Cranial nerves II through XII unremarkable. Cerebellum unremarkable. Motor and sensory unremarkable throughout. Exam nonfocal. Patient reports that she did call to inform him that she was not feeling better after completing the Levaquin. She is unable to get in to the clinic with him the time soon. She reports that they were going to schedule a CT scan of her head. We did discuss doing a CT today, the patient would like that done. As this has been going on for 3 weeks we will do some routine lab work to make sure there is nothing additional going on. Patient is agreeable to plan of care and denies any further questions at this time. Labs: Patient does have a white count of 13.1, otherwise the CBC is normal. CMP and ESR are normal. Urinalysis is normal. Head CT is normal. Will give the patient 0.5 mg of Ativan IV prior to discharge. Instructed the patient to follow -up with her primary care provider for further management of her migraines. Diagnostics: CBC, CMP, UA, urine , ESR, head CT Therapeutics: IV fluid, Zofran, Toradol, Benadryl, Solu-Medrol, Ativan Impression: Migraine Plan: 1. The labs and head CT were normal today. 2. Please follow-up with Dr. Allison for further management of care of your migraines. He may want to adjust your preventative/abortive medications. 3. Please follow-up in the ED as needed and as discussed. Definitive disposition and diagnosis as appropriate pending reevaluation and review of above. 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 bilateral temples Pain Score (Numeric/FACES): 10 - Related Data Allergies Allergy/AdvReac Type Severity Reaction Status Date / Time No Known Allergies Allergy Verified 03/19/17 18:16 Home Meds: Home Meds Etonogestrel [Nexplanon] 1 device SUBCUT ASDIRECTED 11/01/16 [History] Propranolol [Inderal] 40 mg PO BID 12/19/16 [History] Past Medical History HEENT History: Reports: None Cardiovascular History: Reports: None Respiratory History: Reports: None Gastrointestinal History: Reports: None, Chronic Constipation Genitourinary History: Reports: None Other Genitourinary History: currently has kidney stone SPECIAL POLICE OFFICER History: Reports: None Musculoskeletal History: Reports: None Neurological History: Reports: Migraines Psychiatric History: Reports: None Endocrine/Metabolic History: Reports: None Hematologic History: Reports: None Immunologic History: Reports: None Oncologic (Cancer) History: Reports: None Dermatologic History: Reports: None - Infectious Disease History Infectious Disease History: Reports: None - Past Surgical History Head Surgeries/Procedures: Reports: None HEENT Surgical History: Reports: Adenoidectomy, Tonsillectomy Cardiovascular Surgical History: Reports: None Female Surgical History: Reports: None Social & Family History - Family History Family Medical History: Noncontributory - Tobacco Use Smoking Status *Q: Never Smoker Second Hand Smoke Exposure: No - Caffeine Use Caffeine Use: Reports: Coffee, Soda Caffeine Use Comment: avg 1 cup every 2 weeks - Recreational Drug Use Recreational Drug Use: No ED ROS GENERAL - Review of Systems Review Of Systems: See Below Constitutional: Denies: Fever, Chills, Weakness, Weight Loss HEENT: Denies: Vision Change Respiratory: Denies: Shortness of Breath, Cough Cardiovascular: Denies: Chest Pain, Lightheadedness GI/Abdominal: Denies: Abdominal Pain, Diarrhea : Denies: Dysuria, Hematuria Musculoskeletal: Denies: Muscle Pain, Muscle Stiffness Neurological: Reports: Headache. Denies: Confusion, Dizziness, Trouble Speaking , Difficulty Walking, Gait Disturbance Psychiatric: Denies: Anxiety, Confusion - Physical Exam Exam: See Below (See dictation) Course - Vital Signs Last Recorded V/S: Last Vital Signs Temp 97.8 F 06/10/17 10:11 Pulse 75 06/10/17 10:11 Resp 16 06/10/17 10:11 BP 129/60 06/10/17 10:11 Pulse Ox 97 06/10/17 10:11 - Orders/Labs/Meds Orders: Active Orders 24 hr Category Date Time Status Head wo Cont [CT] Stat Exams 06/10/17 10:20 Taken LORazepam [Ativan] Med 06/10/17 12:11 Once 0.5 mg IVPUSH ONETIME ONE Labs: Laboratory Tests 06/10/17 06/10/17 06/10/17 Range/Units 10:13 10:30 10:30 WBC 13.11 H (4.0-11.0) K/uL RBC 4.95 (4.30-5.90) M/uL Hgb 14.0 (12.0-16.0) g/dL Hct 42.1 (36.0-46.0) % MCV 85.1 (80.0-98.0) fL MCH 28.3 (27.0-32.0) pg MCHC 33.3 (31.0-37.0) g/dL RDW Std Deviation 40.7 (28.0-62.0) fl RDW Coeff of Johnathan 13 (11.0-15.0) % Plt Count 327 (150-400) K/uL MPV 9.30 (7.40-12.00) fL Neut % (Auto) 62.4 (48.0-80.0) % Lymph % (Auto) 26.7 (16.0-40.0) % Jewell % (Auto) 8.6 (0.0-15.0) % Eos % (Auto) 2.0 (0.0-7.0) % Baso % (Auto) 0.3 (0.0-1.5) % Neut # (Auto) 8.2 H (1.4-5.7) K/uL Lymph # (Auto) 3.5 H (0.6-2.4) K/uL Jewell # (Auto) 1.1 H (0.0-0.8) K/uL Eos # (Auto) 0.3 (0.0-0.7) K/uL Baso # (Auto) 0.0 (0.0-0.1) K/uL Nucleated RBC % 0.0 /100WBC Nucleated RBCs # 0 K/uL ESR (0-19) mm/hr Sodium 143 (136-146) mmol/L Potassium 3.8 (3.5-5.1) mmol/L Chloride 108 (98-110) mmol/L Carbon Dioxide 25 (21-31) mmol/L BUN 17 (6.0-23.0) mg/dL Creatinine 0.9 (0.6-1.5) mg/dL Est Cr Clr Drug Dosing 88.97 mL/min Estimated GFR (MDRD) > 60.0 ml/min Glucose 107 (60-110) mg/dL Calcium 10.0 (8.8-10.8) mg/dL Total Bilirubin 0.2 (0.1-1.5) mg/dL AST 15 (5-40) IU/L ALT 15 (8-54) IU/L Alkaline Phosphatase 121 (40-150) Total Protein 7.5 (6.0-8.0) g/dL Albumin 4.0 (3.5-5.0) g/dL Globulin 3.5 (2.0-3.5) g/dL Albumin/Globulin Ratio 1.1 L (1.3-2.8) Urine Color YELLOW Urine Appearance CLEAR Urine pH 6.5 (5.0-8.0) Ur Specific [place] 1.010 (1.001-1.035) Urine Protein NEGATIVE (NEGATIVE) mg/dL Urine Glucose (UA) NEGATIVE (NEGATIVE) mg/dL Urine Ketones NEGATIVE (NEGATIVE) mg/dL Urine Occult Blood NEGATIVE (NEGATIVE) Urine Nitrite NEGATIVE (NEGATIVE) Urine Bilirubin NEGATIVE (NEGATIVE) Urine Urobilinogen 0.2 (<2.0) EU/dL Ur Leukocyte Esterase NEGATIVE (NEGATIVE) Urine RBC 0-1 (0-2/HPF) Urine WBC 0-1 (0-5/HPF) Ur Epithelial Cells OCCASIONAL (NONE-FEW) Urine Bacteria RARE (NEGATIVE) Monoscreen (NEG) 06/10/17 06/10/17 Range/Units 10:30 10:50 WBC (4.0-11.0) K/uL RBC (4.30-5.90) M/uL Hgb (12.0-16.0) g/dL Hct (36.0-46.0) % MCV (80.0-98.0) fL MCH (27.0-32.0) pg MCHC (31.0-37.0) g/dL RDW Std Deviation (28.0-62.0) fl RDW Coeff of Johnathan (11.0-15.0) % Plt Count (150-400) K/uL MPV (7.40-12.00) fL Neut % (Auto) (48.0-80.0) % Lymph % (Auto) (16.0-40.0) % Jewell % (Auto) (0.0-15.0) % Eos % (Auto) (0.0-7.0) % Baso % (Auto) (0.0-1.5) % Neut # (Auto) (1.4-5.7) K/uL Lymph # (Auto) (0.6-2.4) K/uL Jewell # (Auto) (0.0-0.8) K/uL Eos # (Auto) (0.0-0.7) K/uL Baso # (Auto) (0.0-0.1) K/uL Nucleated RBC % /100WBC Nucleated RBCs # K/uL ESR 18 (0-19) mm/hr Sodium (136-146) mmol/L Potassium (3.5-5.1) mmol/L Chloride (98-110) mmol/L Carbon Dioxide (21-31) mmol/L BUN (6.0-23.0) mg/dL Creatinine (0.6-1.5) mg/dL Est Cr Clr Drug Dosing mL/min Estimated GFR (MDRD) ml/min Glucose (60-110) mg/dL Calcium (8.8-10.8) mg/dL Total Bilirubin (0.1-1.5) mg/dL AST (5-40) IU/L ALT (8-54) IU/L Alkaline Phosphatase (40-150) Total Protein (6.0-8.0) g/dL Albumin (3.5-5.0) g/dL Globulin (2.0-3.5) g/dL Albumin/Globulin Ratio (1.3-2.8) Urine Color Urine Appearance Urine pH (5.0-8.0) Ur Specific [place] (1.001-1.035) Urine Protein (NEGATIVE) mg/dL Urine Glucose (UA) (NEGATIVE) mg/dL Urine Ketones (NEGATIVE) mg/dL Urine Occult Blood (NEGATIVE) Urine Nitrite (NEGATIVE) Urine Bilirubin (NEGATIVE) Urine Urobilinogen (<2.0) EU/dL Ur Leukocyte Esterase (NEGATIVE) Urine RBC (0-2/HPF) Urine WBC (0-5/HPF) Ur Epithelial Cells (NONE-FEW) Urine Bacteria (NEGATIVE) Monoscreen NEGATIVE (NEG) Meds: Medications Discontinued Medications Generic Name Dose Route Start Last Admin Trade Name Freq PRN Reason Stop Dose Admin Diphenhydramine HCl 50 mg 06/10/17 10:20 06/10/17 10:34 Benadryl IVPUSH 06/10/17 10:21 50 mg ONETIME ONE Administration Sodium Chloride 1,000 mls @ 999 mls/hr 06/10/17 10:20 06/10/17 10:33 Normal Saline IV 06/10/17 11:20 999 mls/hr STAT ONE Administration Ketorolac Tromethamine 30 mg 06/10/17 10:20 06/10/17 10:34 Toradol IVPUSH 06/10/17 10:21 30 mg ONETIME ONE Administration Lorazepam 0.5 mg 06/10/17 12:11 Ativan IVPUSH 06/10/17 12:12 ONETIME ONE Methylprednisolone Sodium Succinate 125 mg 06/10/17 10:22 06/10/17 10:34 Solu-Medrol IVPUSH 06/10/17 10:23 125 mg ONETIME ONE Administration Ondansetron HCl 4 mg 06/10/17 10:20 06/10/17 10:34 Zofran IVPUSH 06/10/17 10:21 4 mg ONETIME ONE Administration Departure - Departure Time of Disposition: 12:15 Disposition: Home, Self-Care 01 Clinical Impression: Migraine - Discharge Information Referrals: Marissa Godwin NP [Primary Care Provider] - Forms: ED Department Discharge Additional Instructions: My general discharge The following information is given to patients seen in the emergency department who are being discharged to home. This information is to outline your options for follow-up care. We provide all patients seen in our emergency department with a follow-up referral. The need for follow-up, as well as the timing and circumstances, are variable depending upon the specifics of your emergency department visit. If you don't have a primary care physician on staff, we will provide you with a referral. We always advise you to contact your personal physician following an emergency department visit to inform them of the circumstance of the visit and for follow-up with them and/or the need for any referrals to a consulting specialist. The emergency department will also refer you to a specialist when appropriate. This referral assures that you have the opportunity for follow-up care with a specialist. All of these measure are taken in an effort to provide you with optimal care, which includes your follow-up. Under all circumstances we always encourage you to contact your private physician who remains a resource for coordinating your care. When calling for follow-up care, please make the office aware that this follow-up is from your recent emergency room visit. If for any reason you are refused follow-up, please contact the [facility] Emergency Department at and asked to speak to the emergency department charge nurse. [address] [address] 1. The labs and head CT were normal today. 2. Please follow-up with Dr. Allison for further management of care of your migraines. He may want to adjust your preventative/abortive medications. 3. Please follow-up in the ED as needed and as discussed. - My Orders Last 24 Hours: My Active Orders 06/10/17 10:20 Head wo Cont [CT] Stat 06/10/17 12:11 LORazepam [Ativan] 0.5 mg IVPUSH ONETIME ONE - Assessment/Plan Last 24 Hours: My Active Orders 06/10/17 10:20 Head wo Cont [CT] Stat 06/10/17 12:11 LORazepam [Ativan] 0.5 mg IVPUSH ONETIME ONE
[2017-06-10 11:02] LABS: CHLORIDE,CL 108 mmol/L (98-110); SODIUM,NA 143 mmol/L (136-146)
[2017-06-10] MEDS ORDERED: LORazepam 2 MG/ML SDV IVPUSH ONE (12:11)
--- NOTE | 2017-06-10 13:57 | CT ---
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 Site : 1995 Study: CT Head [id number] 11:49:24 AM Ordering Physician: Doctor Guillen Final Report: HISTORY: Headaches. TECHNIQUE: Noncontrast head CT. COMPARISON: No prior. FINDINGS: There is no acute intracranial hemorrhage. No acute ischemic infarct. No mass effect or midline shift. No hydrocephalus. No loss of banuelos-white differentiation. No extra-axial collection or hematoma. The mastoid air cells are clear. Paranasal sinuses are clear. There is no acute skull fracture. IMPRESSION: 1. No acute intracranial disease. 2. No specific identified cause of the patient`s headaches. Dictated by Jethro Bentley MD @ 06/10/2017 12:05:51 PM Dictated by: Jethro Bentley MD @ 06/10/2017 12:06:00 (Electronic Signature) Report Signed by Proxy. M[facility] HEALTH SYSTEMNavid
== END 2017-06-10 12:42 | disposition home or self-care (01) ==
LOC: MW.ED 09:53
DX: G43.909 Migraine, unspecified, not intractable, without status migrainosus (principal)
CPT/HCPCS: 36415; 70450; 80053; 81001; 85025; 85652; 86308; 96361; 96374; 96375; 99284; J1200; J1885; J2060; J2405; J2930; J7040

== ENCOUNTER 2017-10-04 11:07 | Emergency (ER) | payer BC ==
--- NOTE | 2017-10-04 12:12 | EDM.PDOC ---
ED HPI GENERAL MEDICAL PROBLEM - General Chief Complaint: Chest Pain Stated Complaint: SOB Time Seen by Provider: 10/04/17 11:12 Source of Information: Reports: Patient History Limitations: Reports: No Limitations - History of Present Illness INITIAL COMMENTS - FREE TEXT/NARRATIVE: Presents reporting chest pressure since early this a.m. Patient states feels like something is sitting on the middle of her chest and she points to the mid sternal area. She states the pain started before having breakfast this morning and was accompanied by nausea. She did vomit twice. No sweating or shortness of breath. She also states she has history of acid reflux on a daily basis and in the last couple days has had some coughing and her throat is burning with the cough. She takes Zantac on a fairly regular basis. No medical problems except migraines which are managed with beta julio cesar and obesity. Sexually active on Nexplanon. No personal or family history of heart problems or palpitations. Middle Chest Pain Score (Numeric/FACES): 8 - Related Data Allergies Allergy/AdvReac Type Severity Reaction Status Date / Time No Known Allergies Allergy Verified 10/04/17 11:15 Home Meds: Home Meds Etonogestrel [Nexplanon] 1 device SUBCUT ASDIRECTED 11/01/16 [History] Propranolol [Inderal] 40 mg PO BID 12/19/16 [History] Pantoprazole Sodium 40 mg PO DAILY #14 tablet. 10/04/17 [Rx] Past Medical History HEENT History: Reports: None Cardiovascular History: Reports: None Respiratory History: Reports: None Gastrointestinal History: Reports: Chronic Constipation Genitourinary History: Reports: None Other Genitourinary History: has hx kidney stone BUILDING CLEANER History: Reports: None Musculoskeletal History: Reports: None Neurological History: Reports: Migraines Psychiatric History: Reports: None Endocrine/Metabolic History: Reports: None Hematologic History: Reports: None Immunologic History: Reports: None Oncologic (Cancer) History: Reports: None Dermatologic History: Reports: None - Infectious Disease History Infectious Disease History: Reports: None - Past Surgical History Head Surgeries/Procedures: Reports: None HEENT Surgical History: Reports: Adenoidectomy, Tonsillectomy Cardiovascular Surgical History: Reports: None Female Surgical History: Reports: None Social & Family History - Family History Family Medical History: Noncontributory - Tobacco Use Smoking Status *Q: Former Smoker Used Tobacco, but Quit: Yes Month/Year Tobacco Last Used: 08/2017 Second Hand Smoke Exposure: No - Caffeine Use Caffeine Use: Reports: Coffee, Energy Drinks, Soda, Tea Caffeine Use Comment: avg 1 cup every 2 weeks - Recreational Drug Use Recreational Drug Use: No ED ROS GENERAL - Review of Systems Review Of Systems: ROS reveals no pertinent complaints other than HPI. ED EXAM, GENERAL - Physical Exam Exam: See Below Exam Limited By: No Limitations General Appearance: Alert, No Apparent Distress (playing on phone while reporting pain 01/03) Ears: Normal External Exam Nose: Normal Inspection Throat/Mouth: Normal Inspection Head: Atraumatic, Normocephalic Neck: Normal Inspection Respiratory/Chest: No Respiratory Distress, Lungs Clear, Normal Breath Sounds, Other (mild tenderness upper sternum) Cardiovascular: Normal Peripheral Pulses, Regular Rate, Rhythm, No Murmur GI/Abdominal: Soft, No Distention Extremities: Normal Inspection Neurological: Alert, Oriented Psychiatric: Normal Affect, Normal Mood Skin Exam: Warm, Dry, Intact, Normal Color, No Rash Course - Vital Signs Last Recorded V/S: Last Vital Signs Temp 36.4 C 10/04/17 11:12 Pulse 70 10/04/17 12:11 Resp 18 10/04/17 12:11 BP 116/56 L 10/04/17 12:11 Pulse Ox 99 10/04/17 12:11 - Orders/Labs/Meds Orders: Active Orders 24 hr Category Date Time Status EKG Documentation Completion [RC] STAT Care 10/04/17 11:31 Ordered Labs: Laboratory Tests 10/04/17 10/04/17 10/04/17 Range/Units 11:40 11:40 11:40 WBC 11.51 H (4.0-11.0) K/uL RBC 4.92 (4.30-5.90) M/uL Hgb 14.0 (12.0-16.0) g/dL Hct 41.5 (36.0-46.0) % MCV 84.3 (80.0-98.0) fL MCH 28.5 (27.0-32.0) pg MCHC 33.7 (31.0-37.0) g/dL RDW Std Deviation 40.3 (28.0-62.0) fl RDW Coeff of Johnathan 13 (11.0-15.0) % Plt Count 333 (150-400) K/uL MPV 9.40 (7.40-12.00) fL Neut % (Auto) 62.0 (48.0-80.0) % Lymph % (Auto) 28.5 (16.0-40.0) % Mcclain % (Auto) 7.0 (0.0-15.0) % Eos % (Auto) 2.2 (0.0-7.0) % Baso % (Auto) 0.3 (0.0-1.5) % Neut # (Auto) 7.1 H (1.4-5.7) K/uL Lymph # (Auto) 3.3 H (0.6-2.4) K/uL Mcclain # (Auto) 0.8 (0.0-0.8) K/uL Eos # (Auto) 0.3 (0.0-0.7) K/uL Baso # (Auto) 0.0 (0.0-0.1) K/uL Nucleated RBC % 0.0 /100WBC Nucleated RBCs # 0 K/uL Sodium 142 (136-145) mmol/L Potassium 4.1 (3.5-5.1) mmol/L Chloride 107 (98-107) mmol/L Carbon Dioxide 26.3 (21.0-32.0) mmol/L BUN 13 (7.0-18.0) mg/dL Creatinine 0.9 (0.6-1.0) mg/dL Est Cr Clr Drug Dosing 88.23 mL/min Estimated GFR (MDRD) > 60.0 ml/min Glucose 126 H (74-106) mg/dL Calcium 9.5 (8.5-10.1) mg/dL Total Bilirubin 0.5 (0.2-1.0) mg/dL AST 18 (15-37) IU/L ALT 22 (14-63) IU/L Alkaline Phosphatase 107 (46-116) U/L Troponin I < 0.050 (0.000-0.056) ng/mL Total Protein 7.5 (6.4-8.2) g/dL Albumin 3.7 (3.4-5.0) g/dL Globulin 3.8 H (2.0-3.5) g/dL Albumin/Globulin Ratio 1.0 L (1.3-2.8) Meds: Medications Discontinued Medications Generic Name Dose Route Start Last Admin Trade Name Marciano PRN Reason Stop Dose Admin Al Hydroxide/Mg Hydroxide 15 0 ml 10/04/17 12:26 10/04/17 12:34 ml/ Lidocaine HCl 5 ml PO 10/04/17 12:27 20 each ONETIME ONE Administration Pantoprazole Sodium 40 mg 10/04/17 12:27 10/04/17 12:34 Protonix Iv IVPUSH 10/04/17 12:28 40 mg NOW ONE Administration Departure - Departure Time of Disposition: 12:45 Disposition: Home, Self-Care 01 Condition: Good Clinical Impression: GERD with esophagitis Referrals: Marissa Godwin NP [Primary Care Provider] - Forms: ED Department Discharge Additional Instructions: 1. Please follow up with your primary provider soon. 2. Protonix daily until seen by provider. - My Orders Last 24 Hours: My Active Orders 10/04/17 11:31 EKG Documentation Completion [RC] STAT - Assessment/Plan Last 24 Hours: My Active Orders 10/04/17 11:31 EKG Documentation Completion [RC] STAT
[2017-10-04 12:18] LABS: CHLORIDE,CL 107 mmol/L (98-107); SODIUM,NA 142 mmol/L (136-145)
[2017-10-04] MEDS ORDERED: Alum Hydrox/Mag Hydrox/Simeth 15 ML, Lidocaine 2% 5 ML PO ONE ×2 (12:26)
[2017-10-04] MEDS ORDERED: Pantoprazole 40 MG Vial IVPUSH ONE (12:27)
[2017-10-04 13:07] VITALS: BP 110/65
== END 2017-10-04 13:06 | disposition home or self-care (01) ==
LOC: MW.ED 11:07
DX: K21.0 Gastro-esophageal reflux disease with esophagitis (principal); Z79.899 Other long term (current) drug therapy; Z87.891 Personal history of nicotine dependence
CPT/HCPCS: 36415; 80053; 84484; 85025; 93005; 96374; 99285; A9270; C9113; 99283

== ENCOUNTER 2020-11-29 14:18 | Day surgery (SDC) | payer BC, OTHER ==
[2020-11-29] MEDS ORDERED: Morphine 2 MG/ML SYRINGE IVPUSH ONE ×2 (14:50→16:12)
[2020-11-29] MEDS ORDERED: Ondansetron 4 MG/2 ML SDV IVPUSH ONE (14:50)
[2020-11-29] MEDS ORDERED: Sodium Chloride 0.9% 1,000 ML IV ONE (14:50)
[2020-11-29] MEDS ORDERED: Sodium Chloride 0.9% 10 ML Syringe FLUSH PRN (14:50)
[2020-11-29] MEDS ORDERED: Sodium Chloride 0.9% 2.5 ML Syringe FLUSH PRN (14:50)
[2020-11-29] MEDS ORDERED: Ketorolac 30 MG/ML SDV IVPUSH ONE (16:12)
[2020-11-29] MEDS ORDERED: cefTRIAXone 1 GM in Premix Bag 1 BAG IV ONE (16:12)
[2020-11-29 16:22] LABS: CARBON DIOXIDE,CO2 21.3 mmol/L (21.0-32.0); POTASSIUM,K 4.3 mmol/L (3.5-5.1)
[2020-11-29] MEDS ORDERED: Iopamidol 755 MG/ML 500 ML Multipack Bottle IVPUSH ONE (16:54)
--- NOTE | 2020-11-29 17:32 | CT ---
For Patients: As a result of the Century Cures Act, medical imaging exams and procedure reports are released immediately into your electronic medical record. You may view this report before your referring provider. If you have questions, please contact your health care provider. INDICATION: Right flank and right lower quadrant pain TECHNIQUE: CT abdomen and pelvis acquired without and with 100 cc Isovue 370 IV contrast. COMPARISON: October 20, 2016 FINDINGS: Lower chest: Unremarkable. Liver: Unremarkable. Spleen: Unremarkable. Pancreas: Unremarkable. Gallbladder and bile ducts: Unremarkable. Adrenal glands: Unremarkable. Kidneys: Noncontrast images demonstrate mild right hydronephrosis secondary to a 4 mm stone in the proximal right ureter. There are several additional right-sided renal stones measuring to 3 mm in size. There are a few nonobstructive left renal stones measuring up to 5 mm in size. IV contrast enhanced images demonstrate no evidence for enhancing renal mass. GI tract: Appendix is not seen. No secondary signs of acute appendicitis identified. Vascular structures: Unremarkable. Lymph nodes: Unremarkable. Miscellaneous: Unremarkable. No free air or significant free fluid. Pelvic Organs: 1 cm hypodensity in the right adnexa, likely a physiologic ovarian cyst. Bones: Unremarkable for age. IMPRESSION: Mild right hydronephrosis secondary to a 4 mm stone in the proximal right ureter. Additional stones in both kidneys. Please note that all CT scans at this facility use dose modulation, iterative reconstruction, and/or weight-based dosing when appropriate to reduce radiation dose to as low as reasonably achievable. Dictated by Michelle Andre MD @ 11/29/2020 5:30:[address] Michelle Andre @ Nov 29 2020 5:30PM
--- NOTE | 2020-11-29 17:54 | EDM.PDOC ---
ED HPI GENERAL MEDICAL PROBLEM - General Chief Complaint: Flank Pain Stated Complaint: BACK PAIN Time Seen by Provider: 11/29/20 14:40 Source of Information: Reports: Patient History Limitations: Reports: No Limitations - History of Present Illness INITIAL COMMENTS - FREE TEXT/NARRATIVE: HISTORY AND PHYSICAL: History of present illness: Patient is a 25-year-old female who presents to the emergency room today with concern of right-sided flank pain that has been ongoing since 7 this morning. Patient states the flank pain does wrap around to her right lower quadrant. Patient states that she has had a kidney stone in the past and this does feel similar to this but states that it is different and that it is and also in her right lower abdomen. Patient states that prior, she never had the feeling in her right lower abdomen. Patient states that she is also had a few episodes of vomiting due to the pain. Patient denies any health history or any abdominal surgeries. Patient denies any other symptoms or concerns. Patient denies fever, chills, chest pain, shortness of breath, or cough. Denies headache, neck stiff ness, change in vision, syncope, or near syncope. Denies diarrhea, constipation, or dysuria. Has not noted any blood in urine or stool. Patient has been eating and drinking appropriately prior to onset of symptoms. Review of systems: As per history of present illness and below otherwise all systems reviewed and negative. Past medical history: As per history of present illness and as reviewed below otherwise noncontributory. Surgical history: As per history of present illness and as reviewed below otherwise noncontributory. Social history: See social history for further information Family history: As per history of present illness and as reviewed below otherwise noncontributory. Physical exam: General: Patient is alert, oriented, and in no acute distress. Patient sitting comfortably on exam table but is tearful on exam. Vitals stable and reviewed by me HEENT: Atraumatic, normocephalic, pupils equal and reactive bilaterally, negative for conjunctival pallor or scleral icterus, mucous membranes moist, TMs normal bilaterally, throat clear, neck supple, nontender, trachea midline. No drooling or trismus noted. No meningeal signs. No hot potato voice noted. Lungs: Clear to auscultation, breath sounds equal bilaterally, chest nontender. Heart: S1S2, regular rate and rhythm without overt murmur Abdomen: Soft, nondistended, nontender. Negative for masses or hepatosplenomegaly. Positive for costovertebral tenderness of the right Pelvis: Stable nontender. Genitourinary: Deferred. Rectal: Deferred. Skin: Intact, warm, dry. No lesions or rashes noted. Extremities: Atraumatic, negative for cords or calf pain. Neurovascular un remarkable. Neuro: Awake, alert, oriented. Cranial nerves II through XII unremarkable. Cerebellum unremarkable. Motor and sensory unremarkable throughout. Exam nonfocal. Notes: Patient is a 25 year old female who presents to the ED today secondary to right side flank/RLQ abdominal pain and vomiting since this morning. Upon arrival to the ED, patient is vitally stable with positive CVA tenderness on exam and tearful on exam, otherwise well appearing. Will obtain labwork with ct scan of abd/pelvis. While awaiting lab work, patient does have increase in her right-sided flank pain that is colicky and comes and goes. Will give additional pain medications at this time and reassess patient. CBC shows an elevated white blood cell count today at 19.66, lactate is within normal limits otherwise mild derangements of CBC unremarkable. CMP noted to have a mild elevation in creatinine at 1.2, otherwise mild derangements of CMP unremarkable. hCG is negative. Urinalysis does show positive leukocyte Estrace and positive nitrite with 30-40 red blood cells and 20-30 white blood cells with 4+ bacteria. Impression: Acute urinary tract infection Abdominal pelvic CT shows mild right hydronephrosis secondary to a 4 mm stone in the proximal right ureter. Additional stones in both kidneys. All incidental findings of CT scan today discussed with patient and the importance for follow- up with primary care provider later date. Upon reevaluation of patient, she is more comfortable given therapeutics today in the ED. Given acute urinary tract infection with leukocytosis concerning for SIRS, r/o sepsis pending blood cultures, along with a 4mm obstructing ureterolithiasis, I did call and speak to the urologist on-call, Dr. Amado, who has come in and personally seen and evaluated the patient. See his official consult note for further treatment and disposition. Will transfer to the operating room to Dr. Amado. Patient discharged to the operating room in stable condition. Voices understanding and is agreeable to plan of care. Denies any further questions or concerns at this time. Diagnostics: CBC, CMP, UA, lipase, abdominal pelvic CT with and without contrast, urine hCG, urine culture, lactate, blood cultures x 2 Therapeutics: NS, Toradol, Morphine, Zofran, Rocephin Impression: Ureterolithiasis SIRS r/o SEPSIS Urinary tract infection Plan: Transfer to the OR to Dr. Monteiro, urology Definitive disposition and diagnosis as appropriate pending reevaluation and review of above. Right Flank Pain Score (Numeric/FACES): 10 - Related Data Allergies Allergy/AdvReac Type Severity Reaction Status Date / Time No Known Allergies Allergy Verified 11/29/20 14:39 Home Meds: Home Meds . 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 PHYSICAL History: Reports: None Musculoskeletal History: Reports: None Neurological History: Reports: Migraines Psychiatric History: Reports: None Endocrine/Metabolic History: Reports: None Hematologic History: Reports: None Immunologic History: Reports: None Oncologic (Cancer) History: Reports: None Dermatologic History: Reports: None - Infectious Disease History Infectious Disease History: Reports: None - Past Surgical History Head Surgeries/Procedures: Reports: None HEENT Surgical History: Reports: Adenoidectomy, Tonsillectomy Cardiovascular Surgical History: Reports: None Female Surgical History: Reports: None Social & Family History - Family History Family Medical History: No Pertinent Family History - Tobacco Use Tobacco Use Status *Q: Never Tobacco User - Caffeine Use Caffeine Use: Reports: None Caffeine Use Comment: avg 1 cup every 2 weeks - Recreational Drug Use Recreational Drug Use: No ED ROS GENERAL - Review of Systems Review Of Systems: Comprehensive ROS is negative, except as noted in HPI. ED EXAM, GENERAL - Physical Exam Exam: See Below (see dictation) Course - Vital Signs Last Recorded V/S: Last Vital Signs Temp 98.1 F 11/29/20 14:40 Pulse 62 11/29/20 20:24 Resp 16 11/29/20 20:24 BP 122/81 11/29/20 20:24 Pulse Ox 99 11/29/20 20:24 - Orders/Labs/Meds Orders: Active Orders 24 hr Category Date Time Status Admission Status [Patient Status] [ADT] Stat ADT 11/29/20 18:03 Active Consult to Physician [CONS] Stat Cons 11/29/20 17:40 Active CULTURE BLOOD [BC] Stat Lab 11/29/20 16:22 Received CULTURE BLOOD [BC] Stat Lab 11/29/20 16:25 Received CULTURE URINE [MREF] Stat Lab 11/29/20 15:00 Received Blood Culture x2 Reflex Set [OM.PC] Stat Oth 11/29/20 16:16 Ordered Saline Lock Insert [OM.PC] Stat Oth 11/29/20 14:50 Ordered Labs: Laboratory Tests 11/29/20 11/29/20 11/29/20 Range/Units 15:00 15:15 15:15 WBC 19.66 H (4.0-11.0) K/uL RBC 5.20 (4.30-5.90) M/uL Hgb 15.1 (12.0-16.0) g/dL Hct 43.8 (36.0-46.0) % MCV 84.2 (80.0-98.0) fL MCH 29.0 (27.0-32.0) pg MCHC 34.5 (31.0-37.0) g/dL RDW Std Deviation 39.9 (28.0-62.0) fl RDW Coeff of Johnathan 13 (11.0-15.0) % Plt Count 410 H (150-400) K/uL MPV 9.90 (7.40-12.00) fL Neut % (Auto) 87.5 H (48.0-80.0) % Lymph % (Auto) 8.3 L (16.0-40.0) % [place] % (Auto) 3.9 (0.0-15.0) % Eos % (Auto) 0.1 (0.0-7.0) % Baso % (Auto) 0.2 (0.0-1.5) % Neut # (Auto) 17.2 H (1.4-5.7) K/uL Lymph # (Auto) 1.6 (0.6-2.4) K/uL [place] # (Auto) 0.8 (0.0-0.8) K/uL Eos # (Auto) 0.0 (0.0-0.7) K/uL Baso # (Auto) 0.0 (0.0-0.1) K/uL Nucleated RBC % 0.0 /100WBC Nucleated RBCs # 0 K/uL Sodium 141 (136-145) mmol/L Potassium 4.3 (3.5-5.1) mmol/L Chloride 107 (98-107) mmol/L Carbon Dioxide 21.3 (21.0-32.0) mmol/L BUN 11 (7.0-18.0) mg/dL Creatinine 1.2 H (0.6-1.0) mg/dL Est Cr Clr Drug Dosing 61.89 mL/min Estimated GFR (MDRD) 54.7 ml/min Glucose 108 H (74-106) mg/dL Lactic Acid (0.4-2.0) mmol/L Calcium 9.3 (8.5-10.1) mg/dL Total Bilirubin 0.6 (0.2-1.0) mg/dL AST 15 (15-37) IU/L ALT 22 (14-63) IU/L Alkaline Phosphatase 112 (46-116) U/L Total Protein 8.2 (6.4-8.2) g/dL Albumin 3.9 (3.4-5.0) g/dL Globulin 4.3 H (2.6-4.0) g/dL Albumin/Globulin Ratio 0.9 (0.9-1.6) Lipase 173 (73-393) U/L HCG, Qual (NEG) Urine Color YELLOW Urine Appearance SLT CLOUDY Urine pH 5.5 (5.0-8.0) Ur Specific [place] >= 1.030 (1.001-1.035) Urine Protein TRACE H (NEGATIVE) mg/dL Urine Glucose (UA) NEGATIVE (NEGATIVE) mg/dL Urine Ketones NEGATIVE (NEGATIVE) mg/dL Urine Occult Blood LARGE H (NEGATIVE) Urine Nitrite POSITIVE H (NEGATIVE) Urine Bilirubin NEGATIVE (NEGATIVE) Urine Urobilinogen 0.2 (<2.0) EU/dL Ur Leukocyte Esterase TRACE H (NEGATIVE) Urine RBC 30-40 (0-2/HPF) Urine WBC 20-30 (0-5/HPF) Ur Epithelial Cells MODERATE (NONE-FEW) Urine Bacteria 4+ H (NEGATIVE) Influenza Type A RNA (NEGATIVE) Influenza Type B RNA (NEGATIVE) SARS-CoV-2 RNA (BABAR) (NEGATIVE) 06/05/21 06/05/21 06/05/21 Range/Units 15:15 16:29 17:45 WBC (4.0-11.0) K/uL RBC (4.30-5.90) M/uL Hgb (12.0-16.0) g/dL Hct (36.0-46.0) % MCV (80.0-98.0) fL MCH (27.0-32.0) pg MCHC (31.0-37.0) g/dL RDW Std Deviation (28.0-62.0) fl RDW Coeff of Johnathan (11.0-15.0) % Plt Count (150-400) K/uL MPV (7.40-12.00) fL Neut % (Auto) (48.0-80.0) % Lymph % (Auto) (16.0-40.0) % [place] % (Auto) (0.0-15.0) % Eos % (Auto) (0.0-7.0) % Baso % (Auto) (0.0-1.5) % Neut # (Auto) (1.4-5.7) K/uL Lymph # (Auto) (0.6-2.4) K/uL [place] # (Auto) (0.0-0.8) K/uL Eos # (Auto) (0.0-0.7) K/uL Baso # (Auto) (0.0-0.1) K/uL Nucleated RBC % /100WBC Nucleated RBCs # K/uL Sodium (136-145) mmol/L Potassium (3.5-5.1) mmol/L Chloride (98-107) mmol/L Carbon Dioxide (21.0-32.0) mmol/L BUN (7.0-18.0) mg/dL Creatinine (0.6-1.0) mg/dL Est Cr Clr Drug Dosing mL/min Estimated GFR (MDRD) ml/min Glucose (74-106) mg/dL Lactic Acid 0.9 (0.4-2.0) mmol/L Calcium (8.5-10.1) mg/dL Total Bilirubin (0.2-1.0) mg/dL AST (15-37) IU/L ALT (14-63) IU/L Alkaline Phosphatase (46-116) U/L Total Protein (6.4-8.2) g/dL Albumin (3.4-5.0) g/dL Globulin (2.6-4.0) g/dL Albumin/Globulin Ratio (0.9-1.6) Lipase (73-393) U/L HCG, Qual NEGATIVE (NEG) Urine Color Urine Appearance Urine pH (5.0-8.0) Ur Specific [place] (1.001-1.035) Urine Protein (NEGATIVE) mg/dL Urine Glucose (UA) (NEGATIVE) mg/dL Urine Ketones (NEGATIVE) mg/dL Urine Occult Blood (NEGATIVE) Urine Nitrite (NEGATIVE) Urine Bilirubin (NEGATIVE) Urine Urobilinogen (<2.0) EU/dL Ur Leukocyte Esterase (NEGATIVE) Urine RBC (0-2/HPF) Urine WBC (0-5/HPF) Ur Epithelial Cells (NONE-FEW) Urine Bacteria (NEGATIVE) Influenza Type A RNA NEGATIVE (NEGATIVE) Influenza Type B RNA NEGATIVE (NEGATIVE) SARS-CoV-2 RNA (BABAR) NEGATIVE (NEGATIVE) Meds: Medications Discontinued Medications Generic Name Dose Route Start Last Admin Trade Name Freq PRN Reason Stop Dose Admin Cefazolin Sodium Confirm 11/29/20 20:24 Cefazolin 1 Gm Vial Administered 11/29/20 20:25 Dose 2 gm .ROUTE .STK-MED ONE Dexamethasone Confirm 11/29/20 20:07 Dexamethasone 4 Mg/Ml 5 Ml Mdv Administered 11/29/20 20:08 Dose 20 mg .ROUTE .STK-MED ONE Fentanyl Confirm 11/29/20 20:07 Fentanyl 100 Mcg/2 Ml Sdv Administered 11/29/20 20:08 Dose 100 mcg .ROUTE .STK-MED ONE Glycopyrrolate Confirm 11/29/20 20:07 Glycopyrrolate 0.2 Mg/Ml Sdv Administered 11/29/20 20:08 Dose 0.2 mg .ROUTE .STK-MED ONE Sodium Chloride 1,000 mls @ 999 mls/hr 11/29/20 14:50 11/29/20 15:28 Normal Saline IV 11/29/20 15:50 999 mls/hr BOLUS ONE Administration Ceftriaxone Sodium/Dextrose 1 50 mls @ 100 mls/hr 11/29/20 16:12 11/29/20 16:30 gm/ Premix IV 11/29/20 16:41 100 mls/hr ONETIME ONE Administration Acetaminophen Confirm 11/29/20 20:08 Ofirmev 1000 Mg/100 Ml Administered 11/29/20 20:09 Dose 100 mls @ as directed .ROUTE .STK-MED ONE Sodium Chloride Confirm 11/29/20 20:24 Normal Saline Administered 11/29/20 20:25 Dose 20 mls @ as directed .ROUTE .STK-MED ONE Iopamidol 100 ml 11/29/20 16:54 11/29/20 16:55 Iopamidol 755 Mg/Ml 500 Ml Multipack Bottle IVPUSH 11/29/20 16:55 100 ml ONETIME ONE Administration Iopamidol Confirm 11/29/20 20:09 Iopamidol 408 Mg/Ml 20 Ml Sdv Administered 11/29/20 20:10 Dose 20 ml .ROUTE .STK-MED ONE Ketorolac Tromethamine 30 mg 11/29/20 16:12 11/29/20 16:30 Ketorolac 30 Mg/Ml Sdv IVPUSH 11/29/20 16:13 30 mg ONETIME ONE Administration Ketorolac Tromethamine Confirm 11/29/20 20:07 Ketorolac 30 Mg/Ml Sdv Administered 11/29/20 20:08 Dose 30 mg .ROUTE .STK-MED ONE Midazolam HCl Confirm 11/29/20 20:07 Midazolam 1 Mg/Ml 2 Ml Sdv Administered 11/29/20 20:08 Dose 2 mg .ROUTE .STK-MED ONE Morphine Sulfate 2 mg 11/29/20 14:50 11/29/20 15:28 Morphine 2 Mg/Ml Syringe IVPUSH 11/29/20 14:51 2 mg ONETIME ONE Administration Morphine Sulfate 2 mg 11/29/20 16:12 11/29/20 16:30 Morphine 2 Mg/Ml Syringe IVPUSH 11/29/20 16:13 2 mg ONETIME ONE Administration Ondansetron HCl 4 mg 11/29/20 14:50 11/29/20 15:29 Ondansetron 4 Mg/2 Ml Sdv IVPUSH 11/29/20 14:51 4 mg ONETIME ONE Administration Ondansetron HCl Confirm 11/29/20 20:07 Ondansetron 4 Mg/2 Ml Sdv Administered 11/29/20 20:08 Dose 4 mg .ROUTE .STK-MED ONE Propofol Confirm 11/29/20 20:07 Propofol 200 Mg/20 Ml Sdv Administered 11/29/20 20:08 Dose 400 mg .ROUTE .STK-MED ONE Sodium Chloride 10 ml 11/29/20 14:50 11/29/20 15:31 Sodium Chloride 0.9% 10 Ml Syringe FLUSH 10 ml ASDIRECTED PRN Administration Keep Vein Open Sodium Chloride 2.5 ml 11/29/20 14:50 11/29/20 15:31 Sodium Chloride 0.9% 2.5 Ml Syringe FLUSH 2.5 ml ASDIRECTED PRN Administration Keep Vein Open Departure - Departure Time of Disposition: 17:59 Disposition: Still A Patient 30 Clinical Impression: Ureterolithiasis, SIRS (systemic inflammatory response syndrome) Urinary tract infection Qualifiers: Urinary tract infection type: acute cystitis Hematuria presence: with hematuria Qualified Code(s): N30.01 - Acute cystitis with hematuria - Discharge Information Referrals: PCP,None [Primary Care Provider] - Forms: ED Department Discharge Sepsis Event Note (ED) - Evaluation Sepsis Screening Result: No Definite Risk - Focused Exam Vital Signs: Vital Signs Temp Pulse Resp BP Pulse Ox 11/29/20 20:24 62 16 122/81 99 11/29/20 17:42 59 L 16 126/72 100 11/29/20 14:40 98.1 F 61 18 122/72 94 L - My Orders Last 24 Hours: My Active Orders 11/29/20 14:50 Saline Lock Insert [OM.PC] Stat 11/29/20 15:00 CULTURE URINE [MREF] Stat 11/29/20 16:16 Blood Culture x2 Reflex Set [OM.PC] Stat 11/29/20 16:22 CULTURE BLOOD [BC] Stat 11/29/20 16:25 CULTURE BLOOD [BC] Stat 11/29/20 17:40 Consult to Physician [CONS] Stat 11/29/20 18:03 Admission Status [Patient Status] [ADT] Stat - Assessment/Plan Last 24 Hours: My Active Orders 11/29/20 14:50 Saline Lock Insert [OM.PC] Stat 11/29/20 15:00 CULTURE URINE [MREF] Stat 11/29/20 16:16 Blood Culture x2 Reflex Set [OM.PC] Stat 11/29/20 16:22 CULTURE BLOOD [BC] Stat 11/29/20 16:25 CULTURE BLOOD [BC] Stat 11/29/20 17:40 Consult to Physician [CONS] Stat 11/29/20 18:03 Admission Status [Patient Status] [ADT] Stat
[2020-11-29 18:40] LABS: CORONAVIRUS COVID-19 NAA NEGATIVE (NEGATIVE); INFLUENZA A NAA NEGATIVE (NEGATIVE); INFLUENZA B NAA NEGATIVE (NEGATIVE)
[2020-11-29] MEDS ORDERED: Propofol 200 MG/20 ML SDV ONE ×2 (20:07→21:01)
[2020-11-29] MEDS ORDERED: Glycopyrrolate 0.2 MG/ML SDV ONE (20:07)
[2020-11-29] MEDS ORDERED: fentaNYL 100 MCG/2 ML SDV ONE (20:07)
[2020-11-29] MEDS ORDERED: Ondansetron 4 MG/2 ML SDV ONE (20:07)
[2020-11-29] MEDS ORDERED: Ketorolac 30 MG/ML SDV ONE (20:07)
[2020-11-29] MEDS ORDERED: Dexamethasone 4 MG/ML 5 ML MDV ONE (20:07)
[2020-11-29] MEDS ORDERED: Midazolam 1 MG/ML 2 ML SDV ONE (20:07)
[2020-11-29] MEDS ORDERED: Iopamidol 408 MG/ML 20 ML SDV ONE (20:09)
[2020-11-29] MEDS ORDERED: Sodium Chloride 0.9% 0 ML ONE (20:24)
[2020-11-29] MEDS ORDERED: ceFAZolin 1 GM Vial ONE (20:24)
--- NOTE | 2020-11-29 20:54 | PCM.PREANE ---
Preanesthetic Assessment - Procedure Proposed Procedure: cysto - Anesthesia/Transfusion/Family Hx Anesthesia History: Prior Anesthesia Without Reaction Family History of Anesthesia Reaction: No Transfusion History: No Prior Transfusion(s) Intubation History: Unknown - Review of Systems General: No Symptoms Pulmonary: No Symptoms Cardiovascular: No Symptoms Gastrointestinal: Other (flank pain) Other: Reports: Anxiety - Physical Assessment NPO Status Date: 11/29/20 NPO Status Time: 12:00 Vital Signs: Last Vital Signs Temp 36.7 C 11/29/20 14:40 Pulse 62 11/29/20 20:24 Resp 16 11/29/20 20:24 BP 122/81 11/29/20 20:24 Pulse Ox 99 11/29/20 20:24 Height: 1.63 m Weight: 81.647 kg ASA Class: 2E Mental Status: Alert & Oriented x3 Airway Class: Mallampati = 2 Dentition: Reports: Normal Dentition Thyro-Mental Finger Breadths: 3 Mouth Opening Finger Breadths: 3 ROM/Head Extension: Full Lungs: Clear to Auscultation Cardiovascular: Regular Rate, Regular Rhythm - Lab Values: Laboratory Last Values WBC 19.66 K/uL (4.0-11.0) H 11/29/20 15:15 RBC 5.20 M/uL (4.30-5.90) 11/29/20 15:15 Hgb 15.1 g/dL (12.0-16.0) 11/29/20 15:15 Hct 43.8 % (36.0-46.0) 11/29/20 15:15 MCV 84.2 fL (80.0-98.0) 11/29/20 15:15 MCH 29.0 pg (27.0-32.0) 11/29/20 15:15 MCHC 34.5 g/dL (31.0-37.0) 11/29/20 15:15 RDW Std Deviation 39.9 fl (28.0-62.0) 11/29/20 15:15 RDW Coeff of Johnathan 13 % (11.0-15.0) 11/29/20 15:15 Plt Count 410 K/uL (150-400) H 11/29/20 15:15 MPV 9.90 fL (7.40-12.00) 11/29/20 15:15 Neut % (Auto) 87.5 % (48.0-80.0) H 11/29/20 15:15 Lymph % (Auto) 8.3 % (16.0-40.0) L 11/29/20 15:15 [place] % (Auto) 3.9 % (0.0-15.0) 11/29/20 15:15 Eos % (Auto) 0.1 % (0.0-7.0) 11/29/20 15:15 Baso % (Auto) 0.2 % (0.0-1.5) 11/29/20 15:15 Neut # (Auto) 17.2 K/uL (1.4-5.7) H 11/29/20 15:15 Lymph # (Auto) 1.6 K/uL (0.6-2.4) 11/29/20 15:15 [place] # (Auto) 0.8 K/uL (0.0-0.8) 11/29/20 15:15 Eos # (Auto) 0.0 K/uL (0.0-0.7) 11/29/20 15:15 Baso # (Auto) 0.0 K/uL (0.0-0.1) 11/29/20 15:15 Nucleated RBC % 0.0 /100WBC 11/29/20 15:15 Nucleated RBCs # 0 K/uL 11/29/20 15:15 Sodium 141 mmol/L (136-145) 11/29/20 15:15 Potassium 4.3 mmol/L (3.5-5.1) 11/29/20 15:15 Chloride 107 mmol/L (98-107) 11/29/20 15:15 Carbon Dioxide 21.3 mmol/L (21.0-32.0) 11/29/20 15:15 BUN 11 mg/dL (7.0-18.0) 11/29/20 15:15 Creatinine 1.2 mg/dL (0.6-1.0) H 11/29/20 15:15 Est Cr Clr Drug Dosing 61.89 mL/min 11/29/20 15:15 Estimated GFR (MDRD) 54.7 ml/min 11/29/20 15:15 Glucose 108 mg/dL (74-106) H 11/29/20 15:15 Lactic Acid 0.9 mmol/L (0.4-2.0) 11/29/20 16:29 Calcium 9.3 mg/dL (8.5-10.1) 11/29/20 15:15 Total Bilirubin 0.6 mg/dL (0.2-1.0) 11/29/20 15:15 AST 15 IU/L (15-37) 11/29/20 15:15 ALT 22 IU/L (14-63) 11/29/20 15:15 Alkaline Phosphatase 112 U/L (46-116) 11/29/20 15:15 Total Protein 8.2 g/dL (6.4-8.2) 11/29/20 15:15 Albumin 3.9 g/dL (3.4-5.0) 11/29/20 15:15 Globulin 4.3 g/dL (2.6-4.0) H 11/29/20 15:15 Albumin/Globulin Ratio 0.9 (0.9-1.6) 11/29/20 15:15 Lipase 173 U/L (73-393) 11/29/20 15:15 HCG, Qual NEGATIVE (NEG) 11/29/20 15:15 Urine Color YELLOW 11/29/20 15:00 Urine Appearance SLT CLOUDY 11/29/20 15:00 Urine pH 5.5 (5.0-8.0) 11/29/20 15:00 Ur Specific [place] >= 1.030 (1.001-1.035) 11/29/20 15:00 Urine Protein TRACE mg/dL (NEGATIVE) H 11/29/20 15:00 Urine Glucose (UA) NEGATIVE mg/dL (NEGATIVE) 11/29/20 15:00 Urine Ketones NEGATIVE mg/dL (NEGATIVE) 11/29/20 15:00 Urine Occult Blood LARGE (NEGATIVE) H 11/29/20 15:00 Urine Nitrite POSITIVE (NEGATIVE) H 11/29/20 15:00 Urine Bilirubin NEGATIVE (NEGATIVE) 11/29/20 15:00 Urine Urobilinogen 0.2 EU/dL (<2.0) 11/29/20 15:00 Ur Leukocyte Esterase TRACE (NEGATIVE) H 11/29/20 15:00 Urine RBC 30-40 (0-2/HPF) 11/29/20 15:00 Urine WBC 20-30 (0-5/HPF) 11/29/20 15:00 Ur Epithelial Cells MODERATE (NONE-FEW) 11/29/20 15:00 Urine Bacteria 4+ (NEGATIVE) H 11/29/20 15:00 Influenza Type A RNA NEGATIVE (NEGATIVE) 11/29/20 17:45 Influenza Type B RNA NEGATIVE (NEGATIVE) 11/29/20 17:45 SARS-CoV-2 RNA (BABAR) NEGATIVE (NEGATIVE) 11/29/20 17:45 - Allergies Allergies/Adverse Reactions: Allergies Allergy/AdvReac Type Severity Reaction Status Date / Time No Known Allergies Allergy Verified 11/29/20 14:39 - Blood Blood Available: No - Acknowledgements Anesthesia Type Planned: General Anesthesia Pt an Appropriate Candidate for the Planned Anesthesia: Yes Alternatives and Risks of Anesthesia Discussed w Pt/Guardian: Yes Pt/Guardian Understands and Agrees with Anesthesia Plan: Yes Additional Comments: Discussed, ? answered, permit signed, will proceed. 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 Musculoskeletal History: Reports: None Neurological History: Reports: Migraines Psychiatric History: Reports: None Endocrine/Metabolic History: Reports: None Hematologic History: Reports: None Immunologic History: Reports: None Oncologic (Cancer) History: Reports: None Dermatologic History: Reports: None - Infectious Disease History Infectious Disease History: Reports: None - Past Surgical History Head Surgeries/Procedures: Reports: None HEENT Surgical History: Reports: Adenoidectomy, Tonsillectomy Cardiovascular Surgical History: Reports: None Female Surgical History: Reports: None - SUBSTANCE USE Tobacco Use Status *Q: Never Tobacco User Recreational Drug Use History: No - HOME MEDS Home Medications: Home Meds . [No Known Home Meds] 01/20/18 [History] - CURRENT (IN HOUSE) MEDS Current Meds: Current Medications Sodium Chloride (Sodium Chloride 0.9% 10 Ml Syringe) 10 ml FLUSH ASDIRECTED PRN PRN Reason: Keep Vein Open Last Admin: 11/29/20 15:31 Dose: 10 ml Documented by: Sodium Chloride (Sodium Chloride 0.9% 2.5 Ml Syringe) 2.5 ml FLUSH ASDIRECTED PRN PRN Reason: Keep Vein Open Last Admin: 11/29/20 15:31 Dose: 2.5 ml Documented by: Discontinued Medications Cefazolin Sodium (Cefazolin 1 Gm Vial) Confirm Administered Dose 2 gm .ROUTE .STK-MED ONE Stop: 11/29/20 20:25 Dexamethasone (Dexamethasone 4 Mg/Ml 5 Ml Mdv) Confirm Administered Dose 20 mg .ROUTE .STK-MED ONE Stop: 11/29/20 20:08 Fentanyl (Fentanyl 100 Mcg/2 Ml Sdv) Confirm Administered Dose 100 mcg .ROUTE .STK-MED ONE Stop: 11/29/20 20:08 Glycopyrrolate (Glycopyrrolate 0.2 Mg/Ml Sdv) Confirm Administered Dose 0.2 mg .ROUTE .STK-MED ONE Stop: 11/29/20 20:08 Sodium Chloride (Normal Saline) 1,000 mls @ 999 mls/hr IV BOLUS ONE Stop: 11/29/20 15:50 Last Admin: 11/29/20 15:28 Dose: 999 mls/hr Documented by: Ceftriaxone Sodium/Dextrose 1 (gm/ Premix) 50 mls @ 100 mls/hr IV ONETIME ONE Stop: 11/29/20 16:41 Last Admin: 11/29/20 16:30 Dose: 100 mls/hr Documented by: Acetaminophen (Ofirmev 1000 Mg/100 Ml) Confirm Administered Dose 100 mls @ as directed .ROUTE .ST-MED ONE Stop: 11/29/20 20:09 Sodium Chloride (Normal Saline) Confirm Administered Dose 20 mls @ as directed .ROUTE .[facility]-MED ONE Stop: 11/29/20 20:25 Iopamidol (Iopamidol 755 Mg/Ml 500 Ml Multipack Bottle) 100 ml IVPUSH ONETIME ONE Stop: 11/29/20 16:55 Last Admin: 11/29/20 16:55 Dose: 100 ml Documented by: Iopamidol (Iopamidol 408 Mg/Ml 20 Ml Sdv) Confirm Administered Dose 20 ml .ROUTE .STK-MED ONE Stop: 11/29/20 20:10 Ketorolac Tromethamine (Ketorolac 30 Mg/Ml Sdv) 30 mg IVPUSH ONETIME ONE Stop: 11/29/20 16:13 Last Admin: 11/29/20 16:30 Dose: 30 mg Documented by: Ketorolac Tromethamine (Ketorolac 30 Mg/Ml Sdv) Confirm Administered Dose 30 mg .ROUTE .STK-MED ONE Stop: 11/29/20 20:08 Midazolam HCl (Midazolam 1 Mg/Ml 2 Ml Sdv) Confirm Administered Dose 2 mg .ROUTE .STK-MED ONE Stop: 11/29/20 20:08 Morphine Sulfate (Morphine 2 Mg/Ml Syringe) 2 mg IVPUSH ONETIME ONE Stop: 11/29/20 14:51 Last Admin: 11/29/20 15:28 Dose: 2 mg Documented by: Morphine Sulfate (Morphine 2 Mg/Ml Syringe) 2 mg IVPUSH ONETIME ONE Stop: 11/29/20 16:13 Last Admin: 11/29/20 16:30 Dose: 2 mg Documented by: Ondansetron HCl (Ondansetron 4 Mg/2 Ml Sdv) 4 mg IVPUSH ONETIME ONE Stop: 11/29/20 14:51 Last Admin: 11/29/20 15:29 Dose: 4 mg Documented by: Ondansetron HCl (Ondansetron 4 Mg/2 Ml Sdv) Confirm Administered Dose 4 mg .ROUTE .STK-MED ONE Stop: 11/29/20 20:08 Propofol (Propofol 200 Mg/20 Ml Sdv) Confirm Administered Dose 400 mg .ROUTE .STK-MED ONE Stop: 11/29/20 20:08
--- NOTE | 2020-11-29 21:42 | PCM.POSTAN ---
POST ANESTHESIA ASSESSMENT - MENTAL STATUS Mental Status: Alert - VITAL SIGNS Vital Signs: Last Vital Signs Temp 36.6 C 11/29/20 21:21 Pulse 66 11/29/20 21:32 Resp 13 11/29/20 21:32 BP 107/53 L 11/29/20 21:32 Pulse Ox 100 11/29/20 21:32 - RESPIRATORY Respiratory Status: Respiratory Rate WNL, Airway Patent, O2 Saturation Stable - CARDIOVASCULAR CV Status: Pulse Rate WNL, Blood Pressure Stable - GASTROINTESTINAL GI Status: No Symptoms - PAIN Pain Score: 1 - POST OP HYDRATION Hydration Status: Adequate & Stable - OBSERVATIONS Free Text/Narrative:: Doing well. No problems at present.
--- NOTE | 2020-11-29 22:11 | PCM48HPAN ---
Post Anesthesia Note - EVALUATION WITHIN 48HRS OF ANESTHETIC Vital Signs in Normal Range: Yes Patient Participated in Evaluation: Yes Respiratory Function Stable: Yes Airway Patent: Yes Cardiovascular Function Stable: Yes Hydration Status Stable: Yes Pain Control Satisfactory: Yes Nausea and Vomiting Control Satisfactory: Yes Mental Status Recovered: Yes Vital Signs: Last Vital Signs Temp 36.6 C 11/29/20 21:21 Pulse 56 L 11/29/20 21:42 Resp 12 11/29/20 21:42 BP 112/56 L 11/29/20 21:42 Pulse Ox 99 11/29/20 21:42 - COMMENTS/OBSERVATIONS Free Text/Narrative:: Doing well. Ready for discharge.
--- NOTE | 2020-11-30 00:16 | OR ---
SURGEON: Jose Smith M.D. DATE OF PROCEDURE: 11/29/2020 PREOPERATIVE DIAGNOSIS: Right upper ureteral stone. POSTOPERATIVE DIAGNOSIS: Right lower ureteral stone. OPERATION: Cystoscopy, dilatation of the right lower ureter, ureteroscopy and stone removal. DESCRIPTION: The patient was given general anesthesia. She was in dorsal lithotomy position, prepped and draped in sterile drapes. Cystourethroscopy was done that was normal. A Glidewire was advanced in the right ureter and appeared that shortly after getting into the ureter for about 3 or 4 cm, maybe 3-4 inches, soon afterwards there was a hydronephrotic drip with cloudy material coming out of the ureter. With that done, I suspect the stone is now in the right lower ureter since there were no other stones in the ureter on the CT scan. So the right lower ureter was then dilated using UroMax II balloon dilator to approximately 15-English. The rigid ureteroscope was advanced in the right ureter and the stone was grasped and removed. With that done, the rigid ureteroscope was advanced all the way up into the upper ureter just below the UPJ. No other stones were identified. Looking back at the CT scan postop, again there was only one stone in the right ureter. With that done, the Glidewire was removed. The bladder was emptied and the patient was moved to recovery room in good condition. PLAN: She comes back as needed. JESENIA / LEANDRO /[id number]
--- NOTE | 2020-11-30 00:31 | CONS ---
DATE OF CONSULTATION: 11/29/2020 DATE OF : 1995 PRIMARY CARE PHYSICIAN: Michael PCP DIAGNOSIS: Right lower ureteral stone. HISTORY OF PRESENT ILLNESS: This 25 years old was seen in the emergency room after presenting with sudden onset of right flank pain. She has had history of urinary stones. Her white blood count was 20,000. Her UA was strongly suggestive of UTI and the CT scan showed a 4.7 mm right upper ureteral stone with partial hydronephrosis. MEDICAL HISTORY: Unremarkable. PHYSICAL EXAMINATION: GENERAL: She is alert and oriented. Appears to be in some pain at the time I saw her. HEART: Normal sinus rhythm. LUNGS: Clear. ABDOMEN: Negative except for mild tenderness over the right lumbar region. DIAGNOSIS: Right upper ureteral stone, 4.7 mm with urinary tract infection. PLAN: Cystoscopy, double-J stent placement. JESENIA REEVES /[id number]
[2020-11-30 00:41] VITALS: BP 108/66
[2020-11-30 00:43] VITALS: PULSE 54
--- NOTE | 2020-11-30 17:03 | CR ---
For Patients: As a result of the Cures Act, medical imaging exams and procedure reports are released immediately into your electronic medical record. You may view this report before your referring provider. If you have questions, please contact your health care provider. INDICATION: Ureteral stent placement. TECHNIQUE: Retrograde pyelogram with stent placement. IMPRESSION: Fluoroscopy was provided for purposes of ureteral stent placement. Fluoroscopy time 4.3 seconds. Five images were captured. Dictated by Kadeem Steele MD @ 11/30/2020 5:02:[address] Kadeem Steele @ Nov 30 2020 5:02PM
== END 2020-11-29 23:15 | disposition home or self-care (01) ==
LOC: MW.ED 14:18 → MW.MS 18:03 → MW.SDS 18:03 → MW.ED 20:25 → MW.SDS 23:15
PROVIDERS: ATTEND Urology
DX: N13.2 Hydronephrosis with renal and ureteral calculous obstruction (principal); N30.01 Acute cystitis with hematuria; D72.829 Elevated white blood cell count, unspecified; R65.10 Systemic inflammatory response syndrome (SIRS) of non-infectious origin without acute organ dysfunction; Z20.822 Contact with and (suspected) exposure to COVID-19
CPT/HCPCS: 0240U; 36415; 52352; 74178; 76000; 80053; 81001; 83605; 83690; 84703; 85025; 87040; 87086; J0131; J0696; J1100; J1885; J2250; J2270; J2405; J2704; J3010; J3490; J7030; Q9966; Q9967; 96365; 96375; 96376; 99285-25; J0690

== ENCOUNTER 2021-05-16 10:59 | Emergency (ER) | payer BC, OTHER ==
--- NOTE | 2021-05-16 13:16 | CT ---
INDICATION : Left flank pain TECHNIQUE : CT Scan of the abdomen and pelvis without contrast stone protocol. FINDINGS: Kidneys and bladder: 3 mm left mid ureteral calculus. Mild left hydroureter. Mild dilatation left renal pelvis. Bilateral nonobstructing calculi in both kidneys. Bladder: Unremarkable. Pelvis: Uterus is normal in size. No free fluid. No pelvic lymph node enlargement. Lung bases: Clear. The liver spleen adrenal glands pancreas: Unremarkable. Lymph nodes: No pathologic enlargement. GI tract: Unremarkable. Lung bases: Clear. Skeletal: Unremarkable. IMPRESSION: 1. 3 mm moderately obstructing stone left mid ureter. 2. Additional nonobstructing upper tract calculi. Please note that all CT scans at this facility use dose modulation, iterative reconstruction, and/or weight-based dosing when appropriate to reduce radiation dose to as low as reasonably achievable. Dictated by Mack Hurd MD @ 05/16/2021 1:15:03 PM (Electronically Signed)
[2021-05-16 13:22] LABS: BLOOD UREA NITROGEN,BUN 11 mg/dL (7.0-18.0); CARBON DIOXIDE,CO2 27.8 mmol/L (21.0-32.0); CHLORIDE,CL 104 mmol/L (98-107); GLUCOSE RANDOM 91 mg/dL (74-106); POTASSIUM,K 4.3 mmol/L (3.5-5.1); SODIUM,NA 141 mmol/L (136-145)
[2021-05-16] MEDS ORDERED: Tamsulosin 0.4 MG Cap.ER PO ONE (13:27)
--- NOTE | 2021-05-16 13:36 | EDM.PDOC ---
ED HPI GENERAL MEDICAL PROBLEM - General Chief Complaint: Back Pain or Injury Stated Complaint: LT LOWER BACK PAIN Time Seen by Provider: 05/16/21 11:45 - History of Present Illness INITIAL COMMENTS - FREE TEXT/NARRATIVE: CHIEF COMPLAINT(S): Dark urine HISTORY OF PRESENT ILLNESS: This is a 25-year-old woman with a past medical history of nephrolithiasis who comes to the emergency department with a chief complaint of dark urine. The patient states that starting yesterday her urine looked sort of like cold. She denies any crush injuries, excessive exercise or any history of rhabdomyolysis. She states that she started to experience left- sided abdominal pain/flank pain that radiated to her groin. She states this was short-lived and she no longer has any pain however it did feel sharp at the time. She denies any vaginal bleeding, dysuria, vaginal discharge. She denies any back pain. She states that the pain sort of felt similar to her prior kidney stone however she does not recall. She currently denies any symptoms at all whatsoever and denies any fever, chills, nausea or vomiting. REVIEW OF SYSTEMS: Constitutional: Denies fever, chills. Eyes: Denies eye pain Ears, Nose, Mouth, & Throat: Denies earache Cardiovascular: Denies chest pain Respiratory: Denies shortness of breath Gastrointestinal: Positive for left flank and left lower quadrant abdominal pain. Denies Nausea, vomiting, diarrhea, hematochezia. Genitourinary: Positive for dark urine. Denies hematuria, dysuria, vaginal bleeding, vaginal discharge Skin:Denies a rash MSK: Denies joint pain Neurological: Denies blurred vision Psychiatric: Denies depression PAST MEDICAL HISTORY: As per history of present illness and as reviewed below otherwise noncontributory. SURGICAL HISTORY: As per history of present illness and as reviewed below otherwise noncontributory. SOCIAL HISTORY: As per history of present illness and as reviewed below otherwise noncontributory. FAMILY HISTORY: As per history of present illness and as reviewed below otherwise noncontributory. EXAMINATION OF ORGAN SYSTEMS/BODY AREAS: Constitutional: Blood pressure is 135/80, heart rate 70, respiratory rate 16 with an oxygen saturation 98% on room air. Temperature 36.7 General: Well-appearing woman who is in no acute distress Psychiatric: Appropriate mood and affect. Eyes: No scleral icterus or conjunctival erythema ENMT: Moist mucous membranes. No pharyngeal erythema Cardiovascular: Regular, rate, and rhythm. No gallops, murmurs, or rubs. Bilateral upper extremity pulses symmetric and intact. No peripheral edema. No JVD. Respiratory: Lungs clear to auscultation bilaterally. No wheezes, rales, or rhonchi. Gastrointestinal: Soft, non-tender, non-distended. Normoactive bowel sounds Genitourinary: No suprapubic tenderness no CVA tenderness. Musculoskeletal: Normal range of motion. Skin: No lesions or abrasions. Neurological: Alert, GCS 15 MEDICAL DECISION MAKING AND COURSE IN THE ED WITH INTERPRETATION/REVIEW OF DIAGNOSTIC STUDIES: This is a 25-year-old woman with a past medical history of nephrolithiasis who presents to the emergency department with short-lived left flank and left lower quadrant abdominal pain associated with changes in her urine color. Patient's vitals and exam are completely normal at this time however given her history will obtain an abdomen pelvis without contrast to evaluate for obstructive nephrolithiasis. Obtain a urinalysis CBC and a BMP to reevaluate for any kidney function issues. Patient is currently asymptomatic therefore we will hold off on any medication administration at this time DDx: Nephrolithiasis, diverticulitis, musculoskeletal strain Laboratory: CBC is unremarkable. BMP is unremarkable. Urinalysis revealed hematuria otherwise unremarkable. The radiological images were viewed by myself along with reading the report from the radiologist. CT abdomen pelvis without contrast moderately obstructing stone in the left mid ureter. After imaging I did reevaluate the patient. The patient's pain continued to remain minimal. At this time I did discuss the results with the patient. At this time I did provide her with Flomax, provided her a prescription for Flomax and discuss strict return precautions. She is to follow-up with urology within 1 week for reevaluation. She was amenable to discharge at this time and had no further questions DISPOSITION: The patient was discharged home in stable condition. The patient will follow up with urology in 5-7 days CONDITION: fair PROCEDURES: None FINAL IMPRESSION(S)/DIAGNOSES: 1. Acute nephrolithiasis Renato Wallis M.D. - Related Data Allergies Allergy/AdvReac Type Severity Reaction Status Date / Time No Known Allergies Allergy Verified 05/16/21 11:53 Home Meds: Home Meds Tamsulosin [Tamsulosin 24 Hr] 0.4 mg PO DAILY #30 cap.er 05/16/21 [Rx] Past Medical History HEENT History: Reports: None Cardiovascular History: Reports: None Respiratory History: Reports: None Gastrointestinal History: Reports: Chronic Constipation Genitourinary History: Reports: None Other Genitourinary History: has hx kidney stone MEDICAID ELIGIBILITY SPECIALIST History: Reports: None Musculoskeletal History: Reports: None Neurological History: Reports: Migraines Psychiatric History: Reports: None Endocrine/Metabolic History: Reports: None Hematologic History: Reports: None Immunologic History: Reports: None Oncologic (Cancer) History: Reports: None Dermatologic History: Reports: None - Infectious Disease History Infectious Disease History: Reports: None - Past Surgical History Head Surgeries/Procedures: Reports: None HEENT Surgical History: Reports: Adenoidectomy, Tonsillectomy Cardiovascular Surgical History: Reports: None Female Surgical History: Reports: None Social & Family History - Family History Family Medical History: No Pertinent Family History - Caffeine Use Caffeine Use: Reports: None Caffeine Use Comment: avg 1 cup every 2 weeks ED ROS GENERAL - Review of Systems Review Of Systems: See Below ED EXAM, GENERAL - Physical Exam Exam: See Below Course - Vital Signs Last Recorded V/S: Last Vital Signs Temp 36.7 C 05/16/21 11:53 Pulse 63 05/16/21 13:50 Resp 16 05/16/21 11:53 BP 124/36 L 05/16/21 13:50 Pulse Ox 99 05/16/21 13:50 - Orders/Labs/Meds Labs: Laboratory Tests 05/16/21 05/16/21 05/16/21 Range/Units 11:50 11:50 13:00 WBC 9.77 (4.0-11.0) K/uL RBC 4.94 (4.30-5.90) M/uL Hgb 14.2 (12.0-16.0) g/dL Hct 41.7 (36.0-46.0) % MCV 84.4 (80.0-98.0) fL MCH 28.7 (27.0-32.0) pg MCHC 34.1 (31.0-37.0) g/dL RDW Std Deviation 39.5 (28.0-62.0) fl RDW Coeff of Johnathan 13 (11.0-15.0) % Plt Count 308 (150-400) K/uL MPV 9.30 (7.40-12.00) fL Neut % (Auto) 62.0 (48.0-80.0) % Lymph % (Auto) 28.7 (16.0-40.0) % [place] % (Auto) 8.4 (0.0-15.0) % Eos % (Auto) 0.6 (0.0-7.0) % Baso % (Auto) 0.3 (0.0-1.5) % Neut # (Auto) 6.1 H (1.4-5.7) K/uL Lymph # (Auto) 2.8 H (0.6-2.4) K/uL [place] # (Auto) 0.8 (0.0-0.8) K/uL Eos # (Auto) 0.1 (0.0-0.7) K/uL Baso # (Auto) 0.0 (0.0-0.1) K/uL Nucleated RBC % 0.0 /100WBC Nucleated RBCs # 0 K/uL Sodium (136-145) mmol/L Potassium (3.5-5.1) mmol/L Chloride (98-107) mmol/L Carbon Dioxide (21.0-32.0) mmol/L BUN (7.0-18.0) mg/dL Creatinine (0.6-1.0) mg/dL Est Cr Clr Drug Dosing mL/min Estimated GFR (MDRD) ml/min Glucose (74-106) mg/dL Calcium (8.5-10.1) mg/dL C-Reactive Protein (0.00-0.90) mg/dL Urine Color YELLOW Urine Appearance CLEAR Urine pH 7.0 (5.0-8.0) Ur Specific [place] 1.010 (1.001-1.035) Urine Protein NEGATIVE (NEGATIVE) mg/dL Urine Glucose (UA) NEGATIVE (NEGATIVE) mg/dL Urine Ketones NEGATIVE (NEGATIVE) mg/dL Urine Occult Blood LARGE H (NEGATIVE) Urine Nitrite NEGATIVE (NEGATIVE) Urine Bilirubin NEGATIVE (NEGATIVE) Urine Urobilinogen 0.2 (<2.0) EU/dL Ur Leukocyte Esterase NEGATIVE (NEGATIVE) Urine RBC 7-14 (0-2/HPF) Urine WBC 0-2 (0-5/HPF) Ur Epithelial Cells MODERATE (NONE-FEW) Urine Bacteria FEW (NEGATIVE) Urine HCG, Qual NEGATIVE (NEGATIVE) 05/16/21 Range/Units 13:00 WBC (4.0-11.0) K/uL RBC (4.30-5.90) M/uL Hgb (12.0-16.0) g/dL Hct (36.0-46.0) % MCV (80.0-98.0) fL MCH (27.0-32.0) pg MCHC (31.0-37.0) g/dL RDW Std Deviation (28.0-62.0) fl RDW Coeff of Johnathan (11.0-15.0) % Plt Count (150-400) K/uL MPV (7.40-12.00) fL Neut % (Auto) (48.0-80.0) % Lymph % (Auto) (16.0-40.0) % [place] % (Auto) (0.0-15.0) % Eos % (Auto) (0.0-7.0) % Baso % (Auto) (0.0-1.5) % Neut # (Auto) (1.4-5.7) K/uL Lymph # (Auto) (0.6-2.4) K/uL [place] # (Auto) (0.0-0.8) K/uL Eos # (Auto) (0.0-0.7) K/uL Baso # (Auto) (0.0-0.1) K/uL Nucleated RBC % /100WBC Nucleated RBCs # K/uL Sodium 141 (136-145) mmol/L Potassium 4.3 (3.5-5.1) mmol/L Chloride 104 (98-107) mmol/L Carbon Dioxide 27.8 (21.0-32.0) mmol/L BUN 11 (7.0-18.0) mg/dL Creatinine 0.8 (0.6-1.0) mg/dL Est Cr Clr Drug Dosing 92.83 mL/min Estimated GFR (MDRD) > 60.0 ml/min Glucose 91 (74-106) mg/dL Calcium 9.1 (8.5-10.1) mg/dL C-Reactive Protein 0.60 (0.00-0.90) mg/dL Urine Color Urine Appearance Urine pH (5.0-8.0) Ur Specific [place] (1.001-1.035) Urine Protein (NEGATIVE) mg/dL Urine Glucose (UA) (NEGATIVE) mg/dL Urine Ketones (NEGATIVE) mg/dL Urine Occult Blood (NEGATIVE) Urine Nitrite (NEGATIVE) Urine Bilirubin (NEGATIVE) Urine Urobilinogen (<2.0) EU/dL Ur Leukocyte Esterase (NEGATIVE) Urine RBC (0-2/HPF) Urine WBC (0-5/HPF) Ur Epithelial Cells (NONE-FEW) Urine Bacteria (NEGATIVE) Urine HCG, Qual (NEGATIVE) Meds: Medications Discontinued Medications Generic Name Dose Route Start Last Admin Trade Name Freq PRN Reason Stop Dose Admin Tamsulosin HCl 0.4 mg 05/16/21 13:27 Tamsulosin 0.4 Mg Cap.Er PO 05/16/21 13:28 ONETIME ONE Departure - Departure Time of Disposition: 13:36 Disposition: Home, Self-Care 01 Condition: Fair Clinical Impression: Ureterolithiasis - Discharge Information *PRESCRIPTION DRUG MONITORING PROGRAM REVIEWED*: No *COPY OF PRESCRIPTION DRUG MONITORING REPORT IN PATIENT LILLIAN: No Prescriptions: Tamsulosin [Tamsulosin 24 Hr] 0.4 mg PO DAILY #30 cap.er Instructions: Kidney Stones, [id number] Referrals: Flaca Mann [employer] [Primary Care Provider] - Forms: ED Department Discharge Additional Instructions: You were evaluated today on an emergent basis. At this time you do have a small 3 mm stone located in your left ureter. This is likely why your urine appeared bloody. At this time there is no evidence of any urinary tract infection and your kidney function is normal. Typically these small stones do pass on their own. I recommend you take Flomax 0.4 mg daily, strain your urine every time you urinate to evaluate if the stone is passed, and maintain fluid hydration with Pedialyte and Gatorade. Give any worsening pain, fever I like you to return to the emergency department. Otherwise I would like you to follow-up with urology within 3 to 5 days. Please contact them at the number below. Your prescription was sent to [facility] Please use: Tylenol 500-1000mg every 6 hours (DO NOT TAKE MORE THAN 4000mg in 1 day) Ibuprofen 400mg every 6 hours (Take with food as it can cause ulcers, GI upset) Example schedule: 8:00 AM (Tylenol 500-1000mg) 11:00 AM (Ibuprofen 400mg) 2:00 PM (Tylenol 500-1000mg) 5:00 PM (Ibuprofen 400mg) [facility] GRACE Mendoza [phone] *When you call for an appointment say "I was seen in the ER in [place] and I have a kidney stone and need follow up this week." The patient is informed of any results of their evaluation and diagnostic workup and all questions are answered. They are given discharge instructions and return precautions. The patient is stable for discharge. The patient states they understand and agree with the plan and that they will return if their symptoms get worse or if they have any new concerns. The following information is given to patients seen in the emergency department who are being discharged to home. This information is to outline your options for follow-up care. We provide all patients seen in our emergency department with a follow-up referral. The need for follow-up, as well as the timing and circumstances, are variable depending upon the specifics of your emergency department visit. If you don't have a primary care physician on staff, we will provide you with a referral. We always advise you to contact your personal physician following an emergency department visit to inform them of the circumstance of the visit and for follow-up with them and/or the need for any referrals to a consulting specialist. The emergency department will also refer you to a specialist when appropriate. This referral assures that you have the opportunity for follow-up care with a specialist. All of these measure are taken in an effort to provide you with optimal care, which includes your follow-up. Under all circumstances we always encourage you to contact your private physician who remains a resource for coordinating your care. When calling for follow-up care, please make the office aware that this follow-up is from your recent emergency room visit. If for any reason you are refused follow-up, please contact the [facility] Emergency Department at and asked to speak to the emergency department charge nurse. Sepsis Event Note (ED) - Evaluation Sepsis Screening Result: No Definite Risk
[2021-05-16 13:53] VITALS: BP 124/36; PULSE 63
== END 2021-05-16 14:00 | disposition home or self-care (01) ==
LOC: MW.ED 10:59
DX: N20.2 Calculus of kidney with calculus of ureter (principal)
CPT/HCPCS: 36415; 74176; 74176-26; 80048; 81001; 81025; 85025; 86140; 99284-25